=== PATIENT | female | born 1995 | race Caucasian/White ===

== ENCOUNTER 2025-02-08 13:17 | Inpatient (IN) | payer OTHER, SELFPAY ==
--- OUTSIDE RECORDS SUMMARY | 2025-02-06 19:56 | XMS_ITS | Encounter Summary ---
Author Organization [facility] Address [address] [place] [address] Care Team Providers Care Device Repair Technician Name Role Phone Unavailable Primary Care Provider Unavailabl e Reason for Visit * Reason Comments Lower extremity injury/pain Jumped appro ximately 15-20 feet off bridge, landed on a rock. No LOC, denies other pain/injury. RLE fx splinted by EMS. PMS intact 200 mcg Fentanyl and 4mg Zofran given by EMS. +ETOH approximately 4-5 drinks. * Auth/Cert (Routine) Specialty Diagnoses / Procedures Referred By Nafisa t Referred To Contact Emergency Medicine [facility] Emergency Department [address] [place] [phone] Phone: tel: fax: Referral ID Status Reason Start Date Expiration Date Visits Re quested Visits Authorized [id number] 1 1 Encounter Details Date Type Department Care Team (Late st Contact Info) Description 02/06/2025 7:56 PM CDT - 02/06/2025 11:03 PM CDT Emergency [facility] Emergency Department [address] [place] [phone] Jacob Erickson MD [address] [place] [phone] Knee laceration, right, initial encounter (Primary Dx); Fall, initial encounter Discharge Disposition: Home or Self Care Social History Tobacco Use Types Packs/Day Years Used Date Smoking Tobacco: Never Smokeless Tobacco: Never Tobacco Cessation:Counseling Given: Not Answered Alcohol Use Standard Drinks/Week Comments Yes 0 (1 standard drink = 0.6 oz pur e alcohol) SOCIAL DRINKER Feeling Safe Answer Date Recorded Are you in a relationship wi th someone who hurts you emotionally and/or physically? No 02/06/2025 Comments No Sex and Gender Information Value Date Recorded Sex Assigned at Not on file Legal Sex Female 9:51 PM CDT Gender Identity Not on file Sexual Orientation Not on file documented as of this encounter Last Filed Vital Signs Vital Sign Reading Time Taken Comments Blood Pressure 103/71 02/06/2025 10:00 PM CDT Pulse 103 02/06/2025 10:00 PM CDT Temperature 36.6 C (97.9 F) 02/06/2025 8:05 PM CDT Respiratory Rate 14 02/06/2025 10:00 PM CDT Oxygen Saturation 98% 02/06/2025 10:00 PM CDT Inhaled Oxygen Concentration - - Weight 81.6 kg (180 lb) 02/06/2025 8:05 PM CDT Height 170.2 cm (5' 7) 02/06/2025 8:05 PM CDT Body Mass Index 28.19 02/06/2025 8:05 PM CDT documented in this encounter Discharge Instructions * Discharge Instructions* Jacob Erickson MD - 02/06/2025 10:04 PM CDT Follow-up with your PCP in 10 to 14 days for repeat wound check and suture removal Return to the emergency department immediately if symptoms worsen, persist, or you have any other concerns. I strive to take your health care seriously and provide you with EXCELLENT service as my patient, making it my #1 priority. You may receive a survey after your visit today. If you cannot rate your experience as EXCELLENT, 10 OUT OF 10, OR HIGHLY RECOMMENDED, then please let us know how we can do a better job in caring foryou and meeting whatever needs you may have. * Attachments The following attachments cannot be sent through Care Everywhere. * Fall Prevention (Citizen [place]) * Lacerations: Stitches ([place]) documented in this encounter Medications at Time of Discharge albuterol sulfate HFA 90 mcg/actuation aerosol inhaler Take 2 Puffs by inhalation every 6 hours as needed for Shortness of Breath. cephALEXin (KEFLEX) 500 mg capsule Take 1 Capsule (500 mg) by mouth 4 times daily for 7 days. 28 Capsule 02/06/2025 5 HYDROcodone-acet aminophen (NORCO) 5-325 mg tabletIndication s:Knee laceration, right, initial encounter,Fall, initial encounter Take 1 Tablet by mouth every 6 hours as needed for Pain. Max Daily Amount: 4 Tablets 15 Tablet 02/06/2025 documented as of this encounter Progress Notes * Brenna Day, RT - 02/06/2025 9:04 PM CDT IMAGING SERVICES MEDICATION and FLUSH PROTOCOL [facility] ORDERS ARE ENTERED ???PER PROTOCOL?? Communication Orders: For ordered imaging procedures requiring intravenous access: Initiate a peripheral IV, if not already in place, and discontinue IV prior to discharge (if outpatient). Enter order if needed: Insert Peripheral IV Bariatric Oral Contrast: Post-surgical bariatric patients will have markedly reduced ability to drink normal quantities of liquid. Four ounces will be the maximum amount or less if the patient cannot comfortably tolerate. Cancel oral contrast if patient is nauseated or vomiting. Water based contrast only. Medication Orders: Local Anesthetic for use to initiate IV ADULT Lidocaine 4% (L.M.X.4) applied topically ONE TIME prior to IV catheter insertion PRN (L.M.X.4 % should be applied 15 minutes prior to procedure) PEDIATRIC Lidocaine 4% (L.M.X.4) applied topically ONE TIME prior to IV catheter insertion PRN (apply 30 minutes prior to procedure) Sucrose 24% (Squirts) given PO prior to IV catheter insertion (administer 1 - 2 minutes prior to procedure) OR Sucrose 24% (Tootsweet; Sweet-Ease) oral solution 0.2 mL oral (apply to tongue on pacifier or clean, gloved finger), ONE TIME 2 minutes prior to painful procedure. May repeat dose x1 PRN to complete procedure. Sodium chloride 0.9% (normal saline) flush 10 mL PRN for saline lock or medication administration. For respiratory distress, initiate oxygen and/or increase O2 to maintain saturation greater than 90% For all invasive procedures: obtain Lidocaine 1% for intra-procedure administration. If Lidocaine 1% unavailable, may substitute Lidocaine 2%. PROCEDURE SPECIFIC CT MEDICATIONS *Any exceptions to these contrast protocols must be approved by a Radiologist and documented in theEHR Progress Notes. When multiple medications are listed with the comment ???OR?? them, select first option until challenges from product availability make this option unavailable Cystogram (CT Pelvis): Iopamidol (Isovue 300) 61%, 50mL, diluted with 250mL of sterile NS. Inject Isovue into 250mL bag ofNS. Clamp ge catheter prior to instilling solution via catheter. Instill up to 300mL of Isovue and NS solution into bladder via catheter, one time. CT ORAL CONTRAST PROTOCOLS FOR ADULTS Use Iopamidol (Isovue 300) 300 mg/ml OR Iohexol (Omnipaque) 240 mg/Ml (SUBJECT TO AVAILABILITY) forCT scan unless patient has a documented allergy to contrast dye. If at any time the Midwife has a question about which option to administer, seek clarification from a Radiologist. If allergy present, use Barium Sulfate (EZ Paque) for procedure. Administer 960mL of the diluted Isovue 300 OR Omnipaque 240 (SUBJECT TO AVAILABILITY), orally, one time only. Iopamidol (Isovue 300) 300 mg/ml: 30ml added to 960mL of clear liquid of patient's choice. Preferred route is oral. May use nasoenteric tube if needed. OR Iohexol (Omnipaque) 240 mg/mL: 50ml added to 960mL of clear liquid of patient's choice. Preferred route is oral. May use nasoenteric tube if needed. (SUBJECT TO AVAILABILITY) Barium Sulfate (EZ Paque /Vanilla Silq) 96% oral suspension: Preferred route is oral. May use nasoenteric tube if needed. Administer 900mL of barium sulfate, orally, one time only. Bariatric Patient: Post-Surgery to 1 year - 50ml total volume. NO carbonated liquids Iopamidol (Isovue 300) 300 mg/ml: mixed with water. Draw 50ml of mixed solution for patient. Preferred route is orally. May use nasoenteric tube if needed. OR Iohexol (Omnipaque) 240 mg/ml: mixed with water. Draw 50ml of mixed solution for patient. Preferredroute is orally. May use nasoenteric tube if needed. (SUBJECT TO AVAILABILITY) After 1 year - no more than 236ml (8oz) total volume. NO carbonated liquids Iopamidol (Isovue 300) 300 mg/ml: mixed with water OR Iohexol (Omnipaque) 240 mg/Ml: mixed with water (SUBJECT TO AVAILABILITY) CT ORAL CONTRAST PROTOCOLS FOR PEDIATRICS Pediatrics = up to age 18 Pediatric Radiologist will approve of one of the following products selected for procedure. Barium Sulfate (EZ Paque) 96% oral suspension: preferred route is oral. May use nasoenteric tube ifneeded. to 3 months Administer up to 90mL of Barium sulfate, orally, one time only 4 months to 1 year old Administer up to 240mL of Barium sulfate, Orally, One Time Only 1 year old to 5 years old Administer up to 360mL of Barium sulfate, Orally, One Time Only 5 years old to 10 years old Administer up to 480mL of Barium sulfate, Orally, One Time Only Over 10 years old Administer up to 600mL of Barium sulfate, Orally, One Time Only Iopamidol (Isovue 300) 300 mg/ml oral soultion Dilute 15mL of Iopamidol with 480mL of clear liquid of patient's choice. Administer the diluted solution per age as follows: Preferred route is orally. May use nasoenteric tube if needed. Send any remaining diluted Iopamidol solution with the patient's nurse to CT Iopamidol (Isovue) 300 mg/ml oral solution age appropriate guidelines [place] Administer 45mL of diluted Iopamidol oral solution, orally every 30 minutes x 2 doses. 1 month to 1 year old Administer 120mL of diluted Iopamidol oral solution, orally every 30 min x 2 doses. 1 year old to 5 years old Administer 180mL of diluted Iopamidol oral solution, orally every 30 min x 2 doses. 5 years old to 10 years old Administer 240mL of diluted Iopamidol oral solution, orally every 30 min x 2 doses. Over 10 years old Administer 245mL of diluted Iopamidol oral solution, orally every 30 min x 2 doses. OR Iohexol (Omnipaque) 240 mg/mL oral solution (SUBJECT TO AVAILABILITY) Dilute 25mL of Iohexol with 480mL of clear liquid of patient's choice. Administer the diluted solution per age as follows: Preferred route is orally. May use nasoenteric tube if needed. Send any remaining diluted Iohexol solution with the patient's nurse to CT Iohexol (Omnipaque) 240 mg/ml oral solution age appropriate guidelines (SUBJECT TO AVAILABILITY) Administer 45mL of diluted Iohexol oral solution, orally every 30 minutes x 2 doses. 1 month to 1 year old Administer 120mL of diluted Iohexol oral solution, orally every 30 min x 2 doses. 1 year old to 5 years old Administer 180mL of diluted Iohexol oral solution, orally every 30 min x 2 doses. 5 years old to 10 years old Administer 240mL of diluted Iohexol oral solution, orally every 30 min x 2 doses. Over 10 years old Administer 250mL of diluted Iohexol oral solution, orally every 30 min x [address] RECTAL CONTRAST PROTOCOLS ADULTS: Iopamidol (Isovue) 300 mg/mL: Dilute 30mL of Isovue with 900mL of warm water in an enema bag. Administer the diluted solution rectally via gravity per patient's tolerance, up to 950mLs, one time only. OR Iohexol (Omnipaque) 240 mg/mL: Dilute 50mL of Omnipaque with 900mL of warm water in an enema bag. Administer the diluted solution rectally via gravity per patient's tolerance, up to 950mLs, one time only. (SUBJECT TO AVAILABILITY) CT IV CONTRAST PROTOCOLS for ADULT ADULTS: (If patient is less than 55kg and confirm dose with radiologist) Iopadmidol (Isovue-300): Administer 2.2mL/kg of Iopamidol 61%, intravenously, one time only. See table below for maximum dose, unless otherwise authorized by radiologist. If exam has been completed before the entire dose has been administered, stop the injection. Multiple doses of iodine contrast within a 24-hour period are a risk factor for IRA and should be avoided if possible. Emergent or other unusual circumstances where multiple doses of contrast are required in a short interval time should prompt consideration by the referring professional and radiologist to discuss the risks and benefits of contrast media administration. If exam not included in table below, contact radiologist for orders. Procedure Maximum Dose CT Head with Contrast Up to [address] Chest with Contrast Up to [address] Maxillofacial with Contrast Up to [address] Soft Tissue Neck with Contrast CT Chest Abdomen Pelvis with Contrast CT Chest Abdomen with Contrast CT Abdomen Pelvis with Contrast CT Pelvis with Contrast CT Angiogram Examinations (all) CT Soft Tissue Neck and Chest Abdomen Pelvis with Contrast Up to [address] Soft Tissue Neck and Chest with Contrast CT Urogram with Contrast CT IV CONTRAST PROTOCOLS for PEDIATRICS PEDIATRICS: Use weight-based dosing if patient is less than 55kg and confirm dose with radiologist. [place] to 15 years old Administer 2.2mL/kg (to MAX of 80 mL) of Iopamidol (Isovue-300) 61%, intravenously, one time only 15 years old and older Administer 2.2mL/kg (to MAX of 150mL) of Iopamidol (Isovue-300) 61%, intravenously, one time only PROCEDURE SPECIFIC MRI MEDICATIONS: MRI ENTEROGRAPHY: GLUGACON ADMINISTRATION ADULTS: (patient 18 years or older) Patient will receive 2 doses of Glucagon one dose 0.5mg IM administered by RN prior to the MRI exambeginning 2nd dose 0.5mg IV prior to the IV contrast being administered. (If the patient is diabetic call the radiologist to verify administration of Glucagon) PEDIATRICS: If the patient is diabetic call the radiologist to verify administration of Glucagon Pediatric patient weighing 24.9 kg or less should have one dose of Glucagon 0.5mg IM administered by RN prior to MRI exam beginning. Pediatric patient weighing 25 kg or greater should have one dose of Glucagon 1 mg IM administered by RN prior to the MRI exam beginning. MRI UROGRAM: LASIX ADMINISTRATION ADULTS: Call radiologist with any questions regarding administration of Lasix Lasix 0.1mg per kg with a minimum dose of Lasix 5mg IV being given up to a max dose of Lasix 10mg IV being given. The Lasix should be administered by RN prior to the IV contrast being administered. (Hold Lasix if: obstruction, anuria and hypersensitivity to furosemide, and electrolyte imbalance or hypotension should be corrected by RN before administering) MRI IV CONTRAST PROTOCOLS ADULTS: Multihance and Prohance can be used for most MRI scans Prohance should be used primarily. Multihance is useful in specific circumstances as directed by the radiologist or per the appropriate sections established protocols. Group I gadolinium contrast agents shall not be administered. Generally, multiple doses of gadolinium contrast should not be administered within a 24-hour period. In emergent or other unusual circumstances where this is necessary, only Group II agents should beadministered. For Liver Studies: Contact radiologist to determine use of one of the following: Gadobenate Dimeglumine (Multihance) (0.1mmol/0.2mL), Administer 0.1mmol/kg = 0.2mL/kg up to MAX of 20 mL, intravenously, one time only Gadoteridol (Prohance) (0.1mmol/0.2mL), Administer 0.1mmol/kg = 0.2mL/kg up to MAX of 20mL, intravenously, one time only Gadoxetate (Eovist) (2.5 mmol/10mL), Administer 0.025mmol/kg = 0.1mL/kg up to MAX of 10mL, intravenously, one time only PEDIATRICS: Radiologist to determine need for contrast Term neonates up to 2 years: Gadobuterol (Gadavist) (1mmol/mL injection), Administer 0.1mmol/kg = 0.1mL/kg up to MAX of 14mmol=14mL, intravenously, one time only OR Gadobenate Dimeglumine (Multihance) (0.1mmol/mL), Administer 0.1mmol/kg = 0.1mL/kg up to MAX of 14mmol = 14mL, intravenously, one time only 2 years and older Gadobenate Dimeglumine (Multihance) (0.1mmol/0.2mL), Administer 0.1mmol/kg = 0.2mL/kg up to MAX of 20mL, intravenously, one time only OR Gadoteridol (Prohance) (0.1mmol/0.2mL), Administer 0.1mmol/kg = 0.2mL/kg up to MAX of 20mL, intravenously, one time only TABLE 1. ACR Manual Classification of Gadolinium-Based Agents Relative to Nephrogenic Systemic Fibrosis Group I: Agents associated with the greatest number of NSF cases: Gadodiamide (Omniscan?? - [employer]) Gadopentetate dimeglumine (Magnevist?? - [employer]) Gadoversetamide (OptiMARK?? - [employer]) Group II: Agents associated with few, if any, unconfounded cases of NSF: Gadobenate dimeglumine (MultiHance?? - [employer] Gadobutrol (Gadavist?? - [employer]; Gadovist in many countries) Gadoteric acid (Dotarem?? - [place], Clariscan - [employer]) Gadoteridol (ProHance?? - [employer] Group III: Agents for which data remains limited regarding NSF risk, but for which few, if any unconfounded cases of NSF have been reported: Gadoxetate disodium (Eovist - [employer]; Primovist in many countries) documented in this encounter ED Notes * Gracia Anton RN - 02/06/2025 10:33 PM CDT Discharge instructions given verbally and written. Pt verbalized understanding of plan of care. Questions answered. No issues or concerns voiced. IV removed. RX sent to pharmacy of choice. Off the floor via wheelchair. Discharged home with aunt as transportation. * Gracia Anton RN - 02/06/2025 10:15 PM CDT Dressing applied to right knee w/ non-adherent dressing and secured w/ coban, akosua wrap applied to keep pt from bending knee too much to reopen wound. * Gracia Anton RN - 02/06/2025 9:40 PM CDT Pt called out requesting another bandage for her knee, other bandage fell off. As I was in room to place another dressing, Dr. Erickosn entered to suture knee. * Gracia Anton RN - 02/06/2025 9:05 PM CDT Pt gone to CT at this time. * Gracia Anton RN - 02/06/2025 8:30 PM CDT Labs obtained and sent. Pt denies any needs at this time. * Gracia Anton RN - 02/06/2025 8:15 PM CDT Chief Complaint Patient presents with Lower extremity injury/pain Jumped approximately 15-20 feet off bridge, landed on a rock. No LOC, denies other pain/injury. RLEfx splinted by EMS. PMS intact 200 mcg Fentanyl and 4mg Zofran given by EMS. +ETOH approximately 4-5 drinks. Patient arrived to the Emergency Department by [facility] from area of accident accompaniedby self. Patient transferred to room via stretcher and to bed via total assistance. Patient complaining of right knee pain after jumping off bridge into water, followed two other people who jumped w/o difficulty, but pt states she felt she broke her right knee right away and thinks she hit a rock but isn't completely sure. Patient is oriented to person, place, time, and general circumstances. Respirations even and unlabored. Skin pink, warm and dry. Pulses and sensation positive to RLE. Pt able to wiggle her toes. Patient resting in bed. No acute distress. Placed on central monitoring. Call light within reach. * Lupe Cabrera - 02/06/2025 8:06 PM CDT TRAUMA LEVEL 2 PAGED OUT AT 2006 * Jacob Erickson MD - 02/06/2025 7:56 PM CDTAssociated Order(s): Laceration Repair HISTORY OF PRESENT ILLNESS History of Present Illness PAST MEDICAL HISTORY REVIEWED MEDICAL: Patient has a past medical history of Asthma. SURGICAL: Patient has a past surgical history that includes wrist surgery (Left) and tonsillectomy. ALLERGIES Ciprofloxacin PHYSICAL EXAM INITIAL VS BP: 111/77 (02/06/252004), Heart Rate: (!) 106 bpm (02/06/252004), Resp: 16 (02/06/252004), Pulse: (!) 101 (02/06/252004), Temp: 97.9 ??F (36.6 ??C) (02/06/252004), Temp src: Oral (02/06/252004), SpO2: 100 % (02/06/252004), Height: 5' 7 (170.2 cm) (02/06/252004), Weight: 81.6 kg (180 lb) (02/06/252004), BMI (Calculated): (!) 28.17 (02/06/252004) Patient's last menstrual period was 01/23/2025 (approximate). Blood pressure 103/71, pulse (!) 103, temperature 97.9 ??F (36.6 ??C), temperature source Oral, resp. rate 14, height 5' 7 (1.702 m), weight 81.6 kg (180 lb), last menstrual period 01/23/2025, SpO2 98%. Physical Exam Vitals and nursing note reviewed. Constitutional: General: She is not in acute distress. HENT: Head: Normocephalic and atraumatic. Eyes: General: Right eye: No discharge. Left eye: No discharge. Conjunctiva/sclera: Conjunctivae normal. Pupils: Pupils are equal, round, and reactive to light. Cardiovascular: Rate and Rhythm: Normal rate. Heart sounds: Normal heart sounds. Pulmonary: Effort: Pulmonary effort is normal. No respiratory distress. Breath sounds: Normal breath sounds. Abdominal: Palpations: Abdomen is soft. Tenderness: There is no abdominal tenderness. There is no guarding. Musculoskeletal: General: No deformity. Cervical back: Neck supple. Skin: Capillary Refill: Capillary refill takes less than 2 seconds. Findings: No rash. Neurological: Mental Status: She is alert. Physical Exam DIAGNOSTICS LAB: CBC WITH DIFFERENTIAL - Abnormal Result Value WBC 7.7 RBC 4.09 HEMOGLOBIN 12.8 HEMATOCRIT 39.5 MCV 96.6 MCH 31.3 MCHC 32.4 RDW 13.0 RDW-STDEV 46.9 PLATELETS 271 MPV 9.2 (*) NEUTROPHILS 66 LYMPHOCYTES 26 MONOCYTES 5 EOSINOPHILS 2 BASOPHILS 1 IMMATURE GRANULOCYTES 0 NEUTROPHIL ABSOLUTE 5.09 LYMPHOCYTE ABSOLUTE 1.96 MONOCYTE ABSOLUTE 0.41 EOSINOPHIL ABSOLUTE 0.13 BASOPHILS ABSOLUTE 0.08 IMMATURE GRANULOCYTES ABSOLUTE 0.03 BASIC METABOLIC PANEL - Abnormal SODIUM 144 POTASSIUM 3.5 CHLORIDE 110 (*) CO2 24 CALCIUM 8.3 (*) BUN 10 CREATININE 0.77 GLUCOSE 90 GFR >60 ANION GAP 10 ETHANOL LEVEL - Abnormal ETHANOL 111.00 (*) ETHANOL % 0.11 PROTIME-INR - Normal PROTIME 13.4 INR 1.0 PTT - Normal PTT 27.2 HCG QUALITATIVE, BLOOD - Normal HCG QUAL, BLOOD Negative URINALYSIS WITH REFLEX MICROSCOPIC HCG QUALITATIVE, URINE DRUG SCREEN, URINE RADIOLOGY: CT 2D RECONSTRUCTION Radiologist Impression IMPRESSION: 1. No acute fracture or malalignment. DICTATION LOCATION: Location 4 CTA CHEST + ABD/PEL W CONTRAST Radiologist Impression IMPRESSION: 1. No pulmonary embolus CT HEAD CERVICAL SPINE WO CONTRAST Radiologist Impression IMPRESSION: 1. No CT evidence of acute intracranial abnormality. 2. No acute cervical spine fracture or traumatic malalignment. DICTATION LOCATION: Location 4 XR KNEE 1 OR 2 VW RIGHT Radiologist Impression IMPRESSION: Laceration. Small joint effusion. DICTATION LOCATION: Location 1 - [facility] XR CHEST PA OR AP 1 VW Radiologist Impression IMPRESSION: Clear lungs. DICTATION LOCATION: Location - [facility] EKG: PROCEDURES Laceration Repair Date/Time: 02/06/2025 10:49 PM Performed by: Jacob Erickson MD Authorized by: Jacob Erickson MD Consent: Consent obtained: Verbal Consent given by: Patient Risks, benefits, and alternatives were discussed: yes Risks discussed: Nerve damage, need for additional repair, infection, pain, vascular damage, tendondamage and retained foreign body [place] protocol: Patient identity confirmed: Arm band and verbally with patient Anesthesia: Anesthesia method: Local infiltration Local anesthetic: Lidocaine 1% WITH epi Laceration details: Location: Leg Leg location: R knee Length (cm): 4 Exploration: Imaging outcome: foreign body not noted Wound exploration: entire depth of wound visualized Wound extent: no foreign bodies/material noted, no muscle damage noted, no nerve damage noted, no tendon damage noted, no underlying fracture noted and no vascular damage noted Contaminated: no Treatment: Area cleansed with: Saline Amount of cleaning: Standard Irrigation solution: Sterile saline Irrigation method: Syringe Layers/structures repaired: Deep dermal/superficial fascia Deep dermal/superficial fascia: Suture size: 4-0 Suture material: Vicryl Suture technique: Simple interrupted Number of sutures: 3 Skin repair: Repair method: Sutures Suture size: 4-0 Suture material: Nylon Suture technique: Simple interrupted Number of sutures: 7 Post-procedure details: Dressing: Sterile dressing Procedure completion: Tolerated well, no immediate complications MEDICAL DECISION MAKING AND PLAN OF CARE Assessment & Plan Medical Decision Making Differential diagnosis includes but not limited to: High: Knee laceration, contusion Mod: Fracture Low: Intra-abdominal hemorrhage intracranial hemorrhage Plan: 29-year-old female presents today with concern for fall after jumping [place] a jose into a river and striking a rock. Trauma CT negative. Knee x-ray negative. Laceration repaired as noted in procedure note which patient tolerated well. Keflex prescribed. [place] prescribed as well. PCP follow-up in 10 to 14 days for suture removal. Reasons return discussed. Patient discharged Amount and/or Complexity of Data Reviewed Labs: ordered. Radiology: ordered. ECG/medicine tests: ordered. Risk Prescription drug management. Clinical Scoring & Consults Medications Administered During the ED Stay from 02/06/20256 to 02/06/2025 2247 Date/Time Order Dose Route Action 02/06/2025 210 CDT iopamidoL (ISOVUE-300) 61% injection (drawn from multi-use bulk pack) 100 mL 100 mL IV Contrast Given 02/06/20252103 CDT sodium chloride flush injection 10 mL 10 mL IV Given 02/06/2025 2145 CDT lidocaine-EPINEPHrine (XYLOCAINE-EPI) 1 %-1:100,000 injection 10 mL 10 mL Infiltration Admin by Another Clinician (Comment) 02/06/2025 2217 CDT HYDROcodone-acetaminophen (NORCO) 5-325 mg per tablet 1 Tablet 1 Tablet Oral Given . New Prescriptions for this Encounter CEPHALEXIN (KEFLEX) 500 MG CAPSULE Take 1 Capsule (500 mg) by mouth 4 times daily for 7 days. HYDROCODONE-ACETAMINOPHEN (NORCO) 5-325 MG TABLET Take 1 Tablet by mouth every 6 hours as needed for Pain. Max Daily Amount: 4 Tablets LAST VS BP: 103/71 (02/06/252199), Heart Rate: 93 bpm (02/06/252199), Resp: 14 (02/06/252199), Pulse: (!) 103 (02/06/252199), Temp: 97.9 ??F (36.6 ??C) (02/06/252004), Temp src: Oral (02/06/252004), SpO2: 98 % (02/06/252199) CLINICAL IMPRESSION Diagnoses Diagnosis Comment Added By Time Added Knee laceration, right, initial encounter [S81.011A] Jacob Erickson MD 02/06/2025 10:03 PM Fall, initial encounter [W19.XXXA] Jacob Erickson MD 02/06/2025 10:03 PM DISPOSITION, EDUCATION AND MEDICATION RECONCILIATION Medications reconciled. See after visit summary for patient education on discharged patients. ED Disposition ED Disposition Discharge Condition Stable User Jacob Erickson MD Date/Time Sat Feb 06, 2025 10:04 PM Comment -- documented in this encounter Miscellaneous Notes * ED Bed Hold Comment Note - Yudy Muñoz EMT-P - 02/06/2025 7:56 PM CDT Bed: 14 Expected date: 02/06/25 Expected time: 7:40 PM Means of arrival: Comments: 29 F suicidal. Jumped approximately [address]. Closed LE fx. 150 mcg Fentanyl and 4mg Zofran given by EMS. VSS. documented in this encounter Plan of Treatment Not on file documented as of this encounter Procedures Procedure Name Priority Date/Time Associated Diagnosis Comments LACERATION REPAIR Routine 02/06/2025 10: [address] 2D RECONSTRUCTION Stat 02/06/2025 9:29 PM CDT CTA CHEST + ABD/PEL W CONTRAST Stat 02/06/2025 9:[address] HEAD CERVICAL SPINE WO CONTRAST Stat 02/06/2025 9:11 PM CDT XR KNEE 1 OR 2 VW RIGHT Stat 02/07/20 8:32 PM CDT XR CHEST PA OR AP 1 VW Stat 8:32 PM CDT EKG 12-LEAD Stat 02/06/2025 8:31 PM CDT HCG QUALITATIVE, SERUM Stat 8:25 PM CDT CBC WITH DIFFERENTIAL Stat 02/06/2025 8:24 PM CDT PTT Stat 02/06/2025 8:24 PM CDT PROTIME-INR Stat 02/06/2025 8:24 PM CDT ETHANOL LEVEL Stat 02/06/2025 8:24 PM CDT BASIC METABOLIC PANEL Stat 02/06/2025 8:24 PM CDT documented in this encounter Results * Laceration Repair (02/06/2025 10:49 PM CDT) Narrative Jacob Erickson MD - 02/06/2025 10:49 PM CDT Jacob Erickson MD 02/06/2025 10:51 PM Laceration Repair Date/Time: 02/06/2025 10:49 PM Performed by: Jacob Erickson MD Authorized by: Jacob Erickson MD Consent: Consent obtained: Verbal Consent given by: Patient Risks, benefits, and alternatives were discussed: yes Risks discussed: Nerve damage, need for additional repair, infection, pain, vascular damage, tendon damage and retained foreign body [place] protocol: Patient identity confirmed: Arm band and verbally with patient Anesthesia: Anesthesia method: Local infiltration Local anesthetic: Lidocaine 1% WITH epi Laceration details: Location: Leg Leg location: R knee Length (cm): 4 Exploration: Imaging outcome: foreign body not noted Wound exploration: entire depth of wound visualized Wound extent: no foreign bodies/material noted, no muscle damage noted, no nerve damage noted, no tendon damage noted, no underlying fracture noted and no vascular damage noted Contaminated: no Treatment: Area cleansed with: Saline Amount of cleaning: Standard Irrigation solution: Sterile saline Irrigation method: Syringe Layers/structures repaired: Deep dermal/superficial fascia Deep dermal/superficial fascia: Suture size: 4-0 Suture material: Vicryl Suture technique: Simple interrupted Number of sutures: 3 Skin repair: Repair method: Sutures Suture size: 4-0 Suture material: Nylon Suture technique: Simple interrupted Number of sutures: 7 Post-procedure details: Dressing: Sterile dressing Procedure completion: Tolerated well, no immediate complications Jacob Erickson MD PROCEDURE/MINOR SURGICAL ORD ERABLES Final Result * CT 2D RECONSTRUCTION (02/06/2025 9:29 PM CDT) Anatomical Region Laterality Modality Computed Tomogra phy 02/06/2025 9:29 PM CDT Impressions 02/06/2025 9:35 PM CDT IMPRESSION: 1. No acute fracture or malalignment. DICTATION LOCATION: Location 4 Narrative 02/06/2025 9:[address] 2D RECONSTRUCTION DATE: 02/06/2025 9:29 PM CLINICAL INDICATION: Jumped 15 to 20 ft. off bridge landing on rock. COMPARISON: Chest 2 views 04/07/2012. TECHNIQUE: Multiplanar reconstructed CT of the thoracic and lumbar spine was performed generated from source data after intravenous contrast administration. The examination was performed with the adjustment of mA according to the patient size and/or the use of Iterative Reconstruction Technique. FINDINGS: T-spine: Normal alignment. No acute fracture or vertebral body collapse. No large disc herniation, spinal canal stenosis, or foraminal stenosis at any thoracic level. L-spine: Normal alignment. No acute fracture or vertebral body collapse. No large disc herniation, spinal canal stenosis, or foraminal stenosis at any lumbar level. The visualized upper sacrum appears intact. Other: Please refer to concurrent chest abdomen and pelvis CT report for evaluation of the intrathoracic and abdominopelvic structures. Procedure Note Bert Martin DO - 02/06/2025 CT 2D RECONSTRUCTION DATE: 02/06/2025 9:29 PM CLINICAL INDICATION: Jumped 15 to 20 ft. [place] bridge landing on rock. COMPARISON: Chest 2 views 04/07/2012. TECHNIQUE: Multiplanar reconstructed CT of the thoracic and lumbar spine was performed generated from source data after intravenous contrast administration. The examination was performed with the adjustment of mA according to the patient size and/or the use of Iterative Reconstruction Technique. FINDINGS: T-spine: Normal alignment. No acute fracture or vertebral body collapse. No large disc herniation, spinal canal stenosis, or foraminal stenosis at any thoracic level. L-spine: Normal alignment. No acute fracture or vertebral body collapse. No large disc herniation, spinal canal stenosis, or foraminal stenosis at any lumbar level. The visualized upper sacrum appears intact. Other: Please refer to concurrent chest abdomen and pelvis CT report for evaluation of the intrathoracic and abdominopelvic structures. IMPRESSION: 1. No acute fracture or malalignment. DICTATION LOCATION: Location 4 us Jacob Erickson MD CT ORDERABLES Final Result * CTA CHEST + ABD/PEL W CONTRAST (02/06/2025 9:24 PM CDT) Anatomical Region Laterality Modality Chest, Abdomen, Pelvis Computed Tomography 02/06/2025 9:29 PM CDT Impressions 02/06/2025 9:38 PM CDT IMPRESSION: 1. No pulmonary embolus Narrative 02/06/2025 9:38 PM CDT EXAM: CTA CHEST + ABD/PEL W CONTRAST DATE: 02/06/2025 HISTORY: Trauma COMPARISON: None. TECHNIQUE: PE protocol chest CT with CT of the abdomen and pelvis. CT angiogram maximum intensity projection 3-D reconstructions of the chest abdomen pelvis was performed. Radiation dose reduction technique was utilized. CONTRAST: IOPAMIDOL 61 % INTRAVENOUS SOLUTION (MULTI-DOSE BULK PACK) Given:100 mL FINDINGS: CHEST: No filling defects are present in the pulmonary arteries to suggest emboli. No suspicious pulmonary nodules or infiltrates are seen. No pneumothorax or pleural effusion is present. The heart, great vessels, and mediastinum are unremarkable. ABDOMEN: The liver, gallbladder, spleen, pancreas, kidneys and adrenal glands are normal. The bowel shows a normal caliber and configuration. No free intraperitoneal air or evidence of obstruction is seen. No significant mesenteric or retroperitoneal lymphadenopathy is noted. PELVIS: The pelvic viscera are normal. The urinary bladder is unremarkable. No free pelvic fluid is present. Procedure Note Flavio Tafoya MD - 02/06/2025 EXAM: CTA CHEST + ABD/PEL W CONTRAST DATE: 02/06/2025 HISTORY: Trauma COMPARISON: None. TECHNIQUE: PE protocol chest CT with CT of the abdomen and pelvis. CT angiogram maximum intensity projection 3-D reconstructions of the chest abdomen pelvis was performed. Radiation dose reduction technique was utilized. CONTRAST: IOPAMIDOL 61 % INTRAVENOUS SOLUTION (MULTI-DOSE BULK PACK) Given:100 mL FINDINGS: CHEST: No filling defects are present in the pulmonary arteries to suggest emboli. No suspicious pulmonary nodules or infiltrates are seen. No pneumothorax or pleural effusion is present. The heart, great vessels, and mediastinum are unremarkable. ABDOMEN: The liver, gallbladder, spleen, pancreas, kidneys and adrenal glands are normal. The bowel shows a normal caliber and configuration. No free intraperitoneal air or evidence of obstruction is seen. No significant mesenteric or retroperitoneal lymphadenopathy is noted. PELVIS: The pelvic viscera are normal. The urinary bladder is unremarkable. No free pelvic fluid is present. IMPRESSION: 1. No pulmonary embolus us Jacob Erickson MD CT ORDERABLES Final Result * CT HEAD CERVICAL SPINE WO CONTRAST (02/06/2025 9:11 PM CDT) Anatomical Region Laterality Modality Head Computed Tomogra phy 02/06/2025 9:13 PM CDT Impressions 02/06/2025 9:18 PM CDT IMPRESSION: 1. No CT evidence of acute intracranial abnormality. 2. No acute cervical spine fracture or traumatic malalignment. DICTATION LOCATION: Location 4 Narrative 02/06/2025 9:[address] HEAD AND CERVICAL SPINE WITHOUT CONTRAST DATE: 02/06/2025 9:11 PM CLINICAL INDICATION: Trauma. COMPARISON: No relevant studies available. TECHNIQUE: CT of the head and cervical spine was performed without the administration of intravenous contrast. Multiplanar reconstructions were generated and reviewed. The examination was performed with the adjustment of mA according to the patient size and/or the use of Iterative Reconstruction Technique. FINDINGS: HEAD: No CT evidence of acute infarction, intracranial hemorrhage or mass lesion. The ventricles are normal without evidence of hydrocephalus. There are no extra-axial fluid collections. The visualized orbits are grossly unremarkable. Minimal paranasal sinus mucosal inflammatory changes. The mastoid air cells are clear. The visualized calvarium appears intact. CERVICAL SPINE: No acute fracture or malalignment. Vertebral body and intervertebral disc heights are maintained. No high-grade osseous spinal canal or neural foraminal compromise. Multiple hypodense thyroid nodules, the largest of which measures up to 0.8 cm, for which no imaging follow-up is recommended. Paravertebral soft tissues are otherwise within normal limits. The visualized lung apices are clear. Procedure Note Bert Martin DO - 02/06/2025 CT HEAD AND CERVICAL SPINE WITHOUT CONTRAST DATE: 02/06/2025 9:11 PM CLINICAL INDICATION: Trauma. COMPARISON: No relevant studies available. TECHNIQUE: CT of the head and cervical spine was performed without the administration of intravenous contrast. Multiplanar reconstructions were generated and reviewed. The examination was performed with the adjustment of mA according to the patient size and/or the use of Iterative Reconstruction Technique. FINDINGS: HEAD: No CT evidence of acute infarction, intracranial hemorrhage or mass lesion. The ventricles are normal without evidence of hydrocephalus. There are no extra-axial fluid collections. The visualized orbits are grossly unremarkable. Minimal paranasal sinus mucosal inflammatory changes. The mastoid air cells are clear. The visualized calvarium appears intact. CERVICAL SPINE: No acute fracture or malalignment. Vertebral body and intervertebral disc heights are maintained. No high-grade osseous spinal canal or neural foraminal compromise. Multiple hypodense thyroid nodules, the largest of which measures up to 0.8 cm, for which no imaging follow-up is recommended. Paravertebral soft tissues are otherwise within normal limits. The visualized lung apices are clear. IMPRESSION: 1. No CT evidence of acute intracranial abnormality. 2. No acute cervical spine fracture or traumatic malalignment. DICTATION LOCATION: Location 4 us Jacob Erickson MD CT ORDERABLES Final Result * XR KNEE 1 OR 2 VW RIGHT (02/06/2025 8:32 PM CDT) Anatomical Region Laterality Modality Lower Extremity Computed Radiogr aphy 02/06/2025 8:33 PM CDT Impressions 02/06/2025 8:38 PM CDT IMPRESSION: Laceration. Small joint effusion. DICTATION LOCATION: [address] Narrative 02/06/2025 8:38 PM CDT EXAM: XR KNEE 1 OR 2 VW RIGHT HISTORY: Pain after jumping off bridge DATE: 02/06/2025 8:32 PM COMPARISON: None FINDINGS: There is a small joint effusion. No fracture or subluxation. No bone lesion. A laceration and soft tissue swelling are seen along the anterior knee. Procedure Note Nidhi Chapin MD - 02/06/2025 EXAM: XR KNEE 1 OR 2 VW RIGHT HISTORY: Pain after jumping off bridge DATE: 02/06/2025 8:32 PM COMPARISON: None FINDINGS: There is a small joint effusion. No fracture or subluxation. No bone lesion. A laceration and soft tissue swelling are seen along the anterior knee. IMPRESSION: Laceration. Small joint effusion. DICTATION LOCATION: [address] Jacob Erickson MD DIAGNOSTIC IMAGING ORDERABLE S Final Result * XR CHEST PA OR AP 1 VW (02/06/2025 8:32 PM CDT) Anatomical Region Laterality Modality Chest Computed Radiogr aphy 02/06/2025 8:32 PM CDT Impressions 02/06/2025 8:38 PM CDT IMPRESSION: Clear lungs. DICTATION LOCATION: [address] Narrative 02/06/2025 8:38 PM CDT PORTABLE AP VIEW OF THE CHEST DATE: 02/06/2025 8:32 PM HISTORY: Pain after jumping from a bridge. COMPARISON: 04/07/2012 FINDINGS: The mediastinal and cardiac silhouettes are normal. The lungs are clear. There is no pleural effusion or pneumothorax. Mild mid thoracic dextrocurvature. Procedure Note Nidhi Chapin MD - 02/06/2025 PORTABLE AP VIEW OF THE CHEST DATE: 02/06/2025 8:32 PM HISTORY: Pain after jumping from a bridge. COMPARISON: 04/07/2012 FINDINGS: The mediastinal and cardiac silhouettes are normal. The lungs are clear. There is no pleural effusion or pneumothorax. Mild mid thoracic dextrocurvature. IMPRESSION: Clear lungs. 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1995 Requested By: JACOB Matute Order Number: [id number] Reading MD: Susihl Taylor MD Measurements Intervals [place] Rate: 94 P: 72 MI: 170 QRS: 90 QRSD: 84 T: 47 QT: 354 QTc: 442 Interpretive Statements Normal sinus rhythm BASELINE ARTIFACT Rightward axis Borderline ECG Electronically Signed On 02-07-2025 16:47:41 CDT by Sushil Taylor MD Procedure Note Sushil Taylor MD - 02/07/2025 [address] [place] [address] Test Date: 2025-02-06 Pat Name: [facility] Department: 97 Room: CHECKOUT Gender: Female 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1995 Requested By: JACOB Matute Order Number: [id number] Reading MD: Sushil Taylor MD Measurements Intervals [place] Rate: 94 P: 72 MI: 170 QRS: 90 QRSD: 84 T: 47 QT: 354 QTc: 442 Interpretive Statements Normal sinus rhythm BASELINE ARTIFACT Rightward axis Borderline ECG Electronically Signed On 02-07-2025 16:47:41 CDT by Sushil Taylor MD Jacob Erickson MD ECG ORDERABLES Final Result INTERFACE SYSTEM Refer to clinic/hospital department * HCG QUALITATIVE, BLOOD (02/06/2025 8:25 PM CDT) HCG QUAL, BLOOD Negative Negative 02/06/2025 9:12 PM CDT [facility] Blood Venipuncture / Unknown 02/06/2025 8:25 PM CDT 02/06/2025 8:28 PM CDT Jacob Erickson MD CHEMISTRY ORDERABLES Final R esult Performing Organization Address [facility] Co de Phone Number [facility] CLIA# [id number] [address] [place] [address] * (ABNORMAL) ETHANOL LEVEL (02/06/2025 8:24 PM CDT) Pathologist [facility] ETHANOL 111.00(H) <10.10 mg/dL 02/06/2025 8:58 PM CDT [facility] ETHANOL % 0.11 %w/v 02/06/2025 8:58 PM CDT [facility] Blood Venipuncture / Unknown 02/06/2025 8:24 PM CDT 02/06/2025 8:28 PM CDT Jacob Erickson MD CHEMISTRY ORDERABLES Final R esult Performing Organization Address City/[facility]/ZIP Co de Phone Number [facility] CLIA# [id number] [address] [place] [address] * (ABNORMAL) BASIC METABOLIC PANEL (02/06/2025 8:24 PM CDT) Pathologist [facility] SODIUM 144 136 - 145 mmol/L 02/06/2025 8:58 PM CDT [facility] POTASSIUM 3.5 3.5 - 4.9 mmol/L 02/06/2025 8:58 PM CDT [facility] CHLORIDE 110(H) 98 - 107 mmol/L 02/06/2025 8:58 PM CDT [facility] CO2 24 22 - 29 mmol/L 02/06/2025 8:58 PM CDT [facility] CALCIUM 8.3(L) 8.6 - 10.2 mg/dL 02/06/2025 8:58 PM CDT [facility] BUN 10 6 - 20 mg/dL 02/06/2025 8:58 PM T [facility] CREATININE 0.77 0.51 - 0.95 mg/dL 02/06/2025 8:58 PM T [facility] GLUCOSE 90 74 - 99 mg/dL 02/06/2025 8:58 PM T [facility] GFR >60 >=60 mL/min/1.7 3 sq meter 02/06/2025 8:58 PM T [facility] Comment:eGFR calculated with 2020 CKD-EPI equation. Vegetarian diet, extremely high or low muscle mass, and may affect results. Cystatin C with Glomerular Filtration Rate is a suitable alternative for these patients. ANION GAP 10 8 - 16 mmol/L 02/06/2025 8:58 PM T [facility] Blood Venipuncture / Unknown 02/06/2025 8:24 PM CDT 02/06/2025 8:28 PM CDT us Jacob Erickson MD CHEMISTRY ORDERABLES Final R esult [facility] CLIA# [id number] [address] [place] [address] * PTT (02/06/2025 8:24 PM CDT) PTT 27.2 23.0 - 36.2 seconds 02/06/2025 8:45 PM CDT [facility] Blood Venipuncture / Unknown 02/06/2025 8:24 PM CDT 02/06/2025 8:28 PM CDT Jacob Erickson MD HEMATOLOGY ORDERABLES Final Result Performing Organization Address City/[facility]/ZIP Co de Phone Number [facility] CLIA# [id number] [address] [place] [address] * PROTIME-INR (02/06/2025 8:24 PM CDT) Pathologist [facility] PROTIME 13.4 12.3 - 14.9 Seconds 02/06/2025 8:45 PM CDT [facility] INR 1.0 0.9 - 1.1 02/06/2025 8:45 PM CDT [facility] Blood Venipuncture / Unknown 02/06/2025 8:24 PM CDT 02/06/2025 8:28 PM CDT Narrative [facility] - 02/06/2025 8:45 PM CDT INR Therapeutic Range: Adult: 2.0 - 3.0 for pulmonary embolism or prophylaxis against venous thrombosis or systemic embolization. 2.0 - 3.0 for patients with tissue heart valves. 2.5 - 3.5 for patients with mechanical heart valves or post [place]. Pediatric (12 years and under): 1.5 - 3.0 Although the target range in children is not well established, INR values of 1.5 - 3.0 are recommended for most patients. Higher values have been used in children with prosthetic cardiac valves and hereditary clotting disorders. [place] (<3 days) therapeutic ranges have not been established. Jacob Erickson MD HEMATOLOGY ORDERABLES Final Result Performing Organization Address City/[facility]/ZIP Co de Phone Number [facility] CLIA# [id number] [address] [place] [address] * (ABNORMAL) CBC WITH DIFFERENTIAL (02/06/2025 8:24 PM CDT) WBC 7.7 4.0 - 9.8 K/uL 02/06/2025 8:31 PM CDT [facility] [place] Comment:ANC = 5.09K/uL RBC 4.09 3.90 - 4.90 M/uL 02/06/2025 8:31 PM CDT [facility] [place] HEMOGLOBIN 12.8 11.8 - 14.8 g/dL 02/06/2025 8:31 PM CDT [facility] [place] HEMATOCRIT 39.5 35.5 - 44.0 % 02/06/2025 8:31 PM CDT [facility] [place] MCV 96.6 82.0 - 99.0 fL 02/06/2025 8:31 PM CDT [facility] [place] MCH 31.3 27.2 - 32.6 pg 02/06/2025 8:31 PM CDT [facility] [place] MCHC 32.4 31.5 - 35.5 g/dL 02/06/2025 8:31 PM CDT [facility] [place] RDW 13.0 11.5 - 14.5 % 02/06/2025 8:31 PM CDT [facility] [place] RDW-STDEV 46.9 37.1 - 48.7 fL 02/06/2025 8:31 PM CDT [facility] [place] PLATELETS 271 140 - 350 K/uL 02/06/2025 8:31 PM CDT [facility] [place] MPV 9.2(L) 9.3 - 12.4 fL 02/06/2025 8:31 PM CDT [facility] [place] NEUTROPHILS 66 % 02/06/2025 8:31 PM CDT [facility] [place] LYMPHOCYTES 26 % 02/06/2025 8:31 PM CDT [facility] [place] MONOCYTES 5 % 02/06/2025 8:31 PM CDT [facility] [place] EOSINOPHILS 2 % 02/06/2025 8:31 PM CDT [facility] [place] BASOPHILS 1 % 02/06/2025 8:31 PM CDT [facility] [place] IMMATURE GRANULOCYTES 0 % 02/06/2025 8:31 PM CDT [facility] [place] NEUTROPHIL ABSOLUTE 5.09 1.90 - 7.00 K/uL 02/06/2025 8:31 PM CDT [facility] [place] LYMPHOCYTE ABSOLUTE 1.96 0.70 - 4.50 K/uL 02/06/2025 8:31 PM CDT [facility] MONOCYTE ABSOLUTE 0.41 0.10 - 1.30 K/uL 02/06/2025 8:31 PM CDT [facility] EOSINOPHIL ABSOLUTE 0.13 0.00 - 0.70 K/uL 02/06/2025 8:31 PM CDT [facility] BASOPHILS ABSOLUTE 0.08 0.00 - 0.20 K/uL 02/06/2025 8:31 PM CDT [facility] IMMATURE GRANULOCYTES ABSOLUTE 0.03 0.00 - 0.03 K/uL 02/06/2025 8:31 PM CDT [facility] Blood Venipuncture / Unknown 02/06/2025 8:24 PM CDT 02/06/2025 8:28 PM CDT Jacob Erickson MD HEMATOLOGY ORDERABLES Final Result [facility]# [id number] [address] [place] [address] documented in this encounter Visit Diagnoses Diagnosis Knee laceration, right, initial encounter- Primary Fall, initial encounter documented in this encounter Administered Medications Inactive Administered Medications - up to 3 most recent administrations Medication Order MAR Action Action Date Dose Rate Site HYDROcodone-acetaminophe n (NORCO) 5-325 mg per tablet 1 Tablet 1 Tablet, Oral, ONE TIME ONLY, 1 dose, On 02/06/25 at 2215, Routine Given 02/06/2025 10:17 PM CDT 1 Tablet iopamidoL (ISOVUE-300) 61% injection (drawn from multi-use bulk pack) 100 mL 100 mL, IV, INTRA-PROCEDURE ONCE, 1 dose, Starting on 02/06/25 at 2103, Until 02/06/25 at 2104, Routine Contrast Given 02/06/2025 9:04 PM CDT 100 mL lidocaine-EPINEPHrine (XYLOCAINE-EPI) 1 %-1:100,000 injection 10 mL 10 mL, Infiltration, ONE TIME ONLY, 1 dose, On 02/06/25 at 2145, Routine Admin by Another Clinician (Comment) 02/06/2025 9:45 PM CDT 10 mL sodium chloride flush injection 10 mL 10 mL, IV, INTRA-PROCEDURE ONCE, 1 dose, Starting on 02/06/25 at 2103, Until 02/06/25 at 2103, Routine Given 02/06/2025 9:04 PM CDT 10 mL documented in this encounter Active and Recently Administered Medications Times are shown in CDT. Scheduled Medication Order 02/04/2025 02/05/2025 02/06/2025 HYDROcodone-acetaminophen (NORCO) 5-325 mg per tablet 1 Tablet (COMPLETED) 1 Tablet, Oral, ONE TIME ONLY, 1 dose, On 02/06/25 at 2215, Routine 221 (Given - Provid er: Gracia Anton RN) iopamidoL (ISOVUE-300) 61% injection (drawn from multi-use bulk pack) 100 mL (COMPLETED) 100 mL, IV, INTRA-PROCEDURE ONCE, 1 dose, Starting on 02/06/25 at 2103, Until 02/06/25 at 2103, Routine 2103 (Contrast Given - Provider: RT Camila) lidocaine-EPINEPHrine (XYLOCAINE-EPI) 1 %-1:100,000 injection 10 mL (COMPLETED) 10 mL, Infiltration, ONE TIME ONLY, 1 dose, On 02/06/25 at 2145, Routine 2144 (Admin by [facility] er Clinician (Comment) - Provider: Gracia Anton RN) sodium chloride flush injection 10 mL (COMPLETED) 10 mL, IV, INTRA-PROCEDURE ONCE, 1 dose, Starting on 02/06/25 at 2103, Until 02/06/25 at 2103, Routine 2103 (Given - Provid er: RT Camila) documented in this encounter
--- OUTSIDE RECORDS SUMMARY | 2025-02-06 19:56 | XMS_ITS | Encounter Summary ---
Author Organization [facility] Address [address] [place] [address] Care Team Providers Care Bobbin Sorter Name Role Phone Unavailable Primary Care Provider [...] Nafisa t Referred To Contact Emergency Medicine [facility] Emergency Department [address] [place] [phone] Phone: tel: fax: Referral ID Status Reason Start Date Expiration Date Visits Re quested Visits Authorized [id number] 1 1 Encounter Details Date Type Department Care Team (Late st Contact Info) Description 02/06/2025 7:56 PM CDT - 02/06/2025 11:03 PM CDT Emergency [facility] Emergency Department [address] [place] [phone] Jacob Erickson MD [address] [place] [phone] Knee laceration, right, initial encounter (Primary [...] sent through Care Everywhere. * Fall Prevention (Namibian) * Lacerations: Stitches (Namibian) documented in this encounter Medications at Time [...] CDT IMAGING SERVICES MEDICATION and FLUSH PROTOCOL [facility] ORDERS ARE ENTERED ???PER PROTOCOL?? Communication [...] contrast dye. If at any time the Fire Assistant has a question about which option to [...] 300 mg/ml oral solution age appropriate guidelines Peshtigo Administer 45mL of diluted Iopamidol oral solution, [...] than 55kg and confirm dose with radiologist. Peshtigo to 15 years old Administer 2.2mL/kg (to [...] number of NSF cases: Gadodiamide (Omniscan?? - [employer]) Gadopentetate dimeglumine (Magnevist?? - [employer]) Gadoversetamide (OptiMARK?? - Guerbet) Group II: Agents associated with few, if any, unconfounded cases of NSF: Gadobenate dimeglumine (MultiHance?? - [employer]) Gadobutrol (Gadavist?? - [employer]; Gadovist in many countries) Gadoteric acid (Dotarem?? - Guerbet, Clariscan - [employer]) Gadoteridol (ProHance?? - [employer]) Group III: Agents for which data remains limited regarding NSF risk, but for which few, if any unconfounded cases of NSF have been reported: Gadoxetate disodium (Eovist - Apprats; Primovist in many countries) documented in this [...] in room to place another dressing, Dr. Erickson entered to suture knee. * Gracia Anton [...] Patient arrived to the Emergency Department by [facility] from area of accident accompaniedby self. [...] joint effusion. DICTATION LOCATION: Location 1 - [facility] XR CHEST PA OR AP 1 VW Radiologist Impression IMPRESSION: Clear lungs. DICTATION LOCATION: Location - [facility] EKG: PROCEDURES Laceration Repair Date/Time: 02/06/2025 10:49 PM Performed by: Jacob Erickson MD Authorized by: Jacob Erickson MD Consent: Consent obtained: Verbal Consent given by: Patient Risks, benefits, and alternatives were discussed: yes Risks discussed: Nerve damage, need for additional repair, infection, pain, vascular damage, tendondamage and retained foreign body [place] protocol: Patient identity confirmed: Arm band and [...] note which patient tolerated well. Keflex prescribed. Normangee prescribed as well. PCP follow-up in 10 [...] damage, tendon damage and retained foreign body [place] protocol: Patient identity confirmed: Arm band and [...] IMPRESSION: Laceration. Small joint effusion. DICTATION LOCATION: [address] Narrative 02/06/2025 8:38 PM CDT EXAM: [...] IMPRESSION: Laceration. Small joint effusion. DICTATION LOCATION: [address] Jacob Erickson MD DIAGNOSTIC IMAGING ORDERABLE S Final Result * XR CHEST PA OR AP 1 VW (02/06/2025 8:32 PM CDT) Anatomical Region Laterality Modality Chest Computed Radiogr aphy 02/06/2025 8:32 PM CDT Impressions 02/06/2025 8:38 PM CDT IMPRESSION: Clear lungs. DICTATION LOCATION: [address] Narrative 02/06/2025 8:38 PM CDT PORTABLE [...] Clear lungs. 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1995 Requested By: JACOB Matute Order Number: [id number] Reading MD: Sushil Taylor MD Measurements Intervals [place] Rate: 94 P: 72 ME: 170 QRS: 90 QRSD: 84 T: 47 QT: 354 QTc: 442 Interpretive Statements Normal sinus rhythm BASELINE ARTIFACT Rightward axis Borderline ECG Electronically Signed On 02-07-2025 16:47:41 CDT by Sushil Taylor MD Procedure Note Sushil Taylor MD - 02/07/2025 [address] [place] [address] Test Date: 2025-02-06 Pat Name: [facility] Department: 97 Room: CHECKOUT Gender: Female 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1995 Requested By: JACOB Matute Order Number: [id number] Reading MD: Sushil Taylor MD Measurements Intervals [place] Rate: 94 P: 72 ME: 170 QRS: 90 QRSD: 84 T: 47 QT: 354 QTc: 442 Interpretive Statements Normal sinus rhythm BASELINE ARTIFACT Rightward axis Borderline ECG Electronically Signed On 02-07-2025 16:47:41 CDT by Sushil Taylor MD Jacob Erickson MD ECG ORDERABLES Final Result INTERFACE SYSTEM Refer to clinic/hospital department * HCG QUALITATIVE, BLOOD (02/06/2025 8:25 PM CDT) HCG QUAL, BLOOD Negative Negative 02/06/2025 9:12 PM CDT [facility] Transfer To [facility] Blood Venipuncture / Unknown 02/06/2025 8:25 PM CDT 02/06/2025 8:28 PM CDT Jacob Erickson MD CHEMISTRY ORDERABLES Final R esult Performing Organization Address [facility] Co de Phone Number [facility] Transfer To [facility] CLIA# [id number] [address] [place] [address] * (ABNORMAL) ETHANOL LEVEL (02/06/2025 8:24 PM CDT) Pathologist [facility] ETHANOL 111.00(H) <10.10 mg/dL 02/06/2025 8:58 PM CDT [facility] Transfer To [facility] ETHANOL % 0.11 %w/v 02/06/2025 8:58 PM CDT [facility] Transfer To [facility] Blood Venipuncture / Unknown 02/06/2025 8:24 PM CDT 02/06/2025 8:28 PM CDT Jacob Erickson MD CHEMISTRY ORDERABLES Final R esult Performing Organization Address City/[facility]/ZIP Co de Phone Number [facility] Transfer To [facility] CLIA# [id number] [address] [place] [address] * (ABNORMAL) BASIC METABOLIC PANEL (02/06/2025 8:24 PM CDT) Pathologist [facility] SODIUM 144 136 - 145 mmol/L 02/06/2025 8:58 PM CDT [facility] Transfer To [facility] POTASSIUM 3.5 3.5 - 4.9 mmol/L 02/06/2025 8:58 PM CDT [facility] CHLORIDE 110(H) 98 - 107 mmol/L 02/06/2025 8:58 PM CDT [facility] CO2 24 22 - 29 mmol/L 02/06/2025 8:58 PM CDT [facility] CALCIUM 8.3(L) 8.6 - 10.2 mg/dL 02/06/2025 8:58 PM CDT [facility] BUN 10 6 - 20 mg/dL 02/06/2025 8:58 PM T [facility] CREATININE 0.77 0.51 - 0.95 mg/dL 02/06/2025 8:58 PM T [facility] GLUCOSE 90 74 - 99 mg/dL 02/06/2025 8:58 PM T [facility] GFR >60 >=60 mL/min/1.7 3 sq meter 02/06/2025 8:58 PM T [facility] Comment:eGFR calculated with 2020 CKD-EPI equation. Vegetarian diet, extremely high or low muscle mass, and may affect results. Cystatin C with Glomerular Filtration Rate is a suitable alternative for these patients. ANION GAP 10 8 - 16 mmol/L 02/06/2025 8:58 PM T [facility] Blood Venipuncture / Unknown 02/06/2025 8:24 PM CDT 02/06/2025 8:28 PM CDT us Jacob Erickson MD CHEMISTRY ORDERABLES Final R esult [facility] CLIA# [id number] [address] [place] [address] * PTT (02/06/2025 8:24 PM CDT) PTT 27.2 23.0 - 36.2 seconds 02/06/2025 8:45 PM CDT [facility] Blood Venipuncture / Unknown 02/06/2025 8:24 PM CDT 02/06/2025 8:28 PM CDT Jacob Erickson MD HEMATOLOGY ORDERABLES Final Result Performing Organization Address City/[facility]/ZIP Co de Phone Number [facility] CLIA# [id number] [address] [place] [address] * PROTIME-INR (02/06/2025 8:24 PM CDT) Pathologist [facility] PROTIME 13.4 12.3 - 14.9 Seconds 02/06/2025 8:45 PM CDT [facility] Transfer To [facility] INR 1.0 0.9 - 1.1 02/06/2025 8:45 PM CDT [facility] Transfer To [facility] Blood Venipuncture / Unknown 02/06/2025 8:24 PM CDT 02/06/2025 8:28 PM CDT Narrative [facility] - 02/06/2025 8:45 PM CDT INR Therapeutic Range: Adult: 2.0 - 3.0 for pulmonary embolism or prophylaxis against venous thrombosis or systemic embolization. 2.0 - 3.0 for patients with tissue heart valves. 2.5 - 3.5 for patients with mechanical heart valves or post SC. Pediatric (12 years and under): 1.5 - 3.0 Although the target range in children is not well established, INR values of 1.5 - 3.0 are recommended for most patients. Higher values have been used in children with prosthetic cardiac valves and hereditary clotting disorders. Peshtigo (<3 days) therapeutic ranges have not been established. Jacob Erickson MD HEMATOLOGY ORDERABLES Final Result Performing Organization Address City/[facility]/ZIP Co de Phone Number [facility] Transfer To [facility] CLIA# [id number] [address] [place] [address] * (ABNORMAL) CBC WITH DIFFERENTIAL (02/06/2025 8:24 PM CDT) WBC 7.7 4.0 - 9.8 K/uL 02/06/2025 8:31 PM CDT [facility] [place] Comment:ANC = 5.09K/uL RBC 4.09 3.90 - 4.90 M/uL 02/06/2025 8:31 PM CDT [facility] [place] HEMOGLOBIN 12.8 11.8 - 14.8 g/dL 02/06/2025 8:31 PM CDT [facility] [place] HEMATOCRIT 39.5 35.5 - 44.0 % 02/06/2025 8:31 PM CDT [facility] [place] MCV 96.6 82.0 - 99.0 fL 02/06/2025 8:31 PM CDT [facility] [place] MCH 31.3 27.2 - 32.6 pg 02/06/2025 8:31 PM CDT [facility] [place] MCHC 32.4 31.5 - 35.5 g/dL 02/06/2025 8:31 PM CDT [facility] [place] RDW 13.0 11.5 - 14.5 % 02/06/2025 8:31 PM CDT [facility] [place] RDW-STDEV 46.9 37.1 - 48.7 fL 02/06/2025 8:31 PM CDT [facility] [place] PLATELETS 271 140 - 350 K/uL 02/06/2025 8:31 PM CDT [facility] [place] MPV 9.2(L) 9.3 - 12.4 fL 02/06/2025 8:31 PM CDT [facility] [place] NEUTROPHILS 66 % 02/06/2025 8:31 PM CDT [facility] [place] LYMPHOCYTES 26 % 02/06/2025 8:31 PM CDT [facility] [place] MONOCYTES 5 % 02/06/2025 8:31 PM CDT [facility] [place] EOSINOPHILS 2 % 02/06/2025 8:31 PM CDT [facility] [place] BASOPHILS 1 % 02/06/2025 8:31 PM CDT [facility] [place] IMMATURE GRANULOCYTES 0 % 02/06/2025 8:31 PM CDT [facility] [place] NEUTROPHIL ABSOLUTE 5.09 1.90 - 7.00 K/uL 02/06/2025 8:31 PM CDT [facility] [place] LYMPHOCYTE ABSOLUTE 1.96 0.70 - 4.50 K/uL 02/06/2025 8:31 PM CDT [facility] MONOCYTE ABSOLUTE 0.41 0.10 - 1.30 K/uL 02/06/2025 8:31 PM CDT [facility] EOSINOPHIL ABSOLUTE 0.13 0.00 - 0.70 K/uL 02/06/2025 8:31 PM CDT [facility] BASOPHILS ABSOLUTE 0.08 0.00 - 0.20 K/uL 02/06/2025 8:31 PM CDT [facility] IMMATURE GRANULOCYTES ABSOLUTE 0.03 0.00 - 0.03 K/uL 02/06/2025 8:31 PM CDT [facility] Blood Venipuncture / Unknown 02/06/2025 8:24 PM CDT 02/06/2025 8:28 PM CDT Jacob Erickson MD HEMATOLOGY ORDERABLES Final Result [facility]# [id number] [address] [place] [address] documented in this encounter Visit Diagnoses Diagnosis [...] 02/06/25 at 2145, Routine 2144 (Admin by [facility] er Clinician (Comment) - Provider: Gracia Anton RN) sodium chloride flush injection 10 mL (COMPLETED) 10 mL, IV, INTRA-PROCEDURE ONCE, 1 dose, Starting on 02/06/25 at 2103, Until 02/06/25 at 2103, Routine 2103 (Given - Provid er: RT Camila) documented in this encounter
[2025-02-08] VITALS (30 sets, daily range): BP systolic 92–122; BP diastolic 53–75; PULSE 82–107; RESP 8–23; TEMP 36.9–38.8; O2SAT 92–100; BMI 29.2
--- NOTE | ~2025-02-08 | MR_ITS ---
EXAMINATION: MR knee RT wo/w con DATE: 02/09/2025 13:38 INDICATION: Right knee prepatellar septic bursitis TECHNIQUE: Magnetic resonance imaging (MRI) of the right knee was performed without intravenous contrast. Sequences included coronal PD-weighted FSE, coronal PD-weighted FS FSE, sagittal T2-weighted FSE, sagittal PD-weighted FS FSE, axial PD weighted fat saturated FSE, axial T1-weighted FS FSE and post contrast axial, sagittal and coronal T1-weighted FS FSE. COMPARISON: None. FINDINGS: Medial compartment: Medial meniscus is normal. Articular cartilage is normal. Lateral compartment: Lateral meniscus is normal. Articular cartilage is normal. Patellofemoral compartment: Small nondisplaced partial-thickness chondral flap tear at the medial aspect of the lateral patellar facet which appears to involve both to 50% the cartilage thickness. Trochlear cartilage is normal. Ligaments and tendons: Anterior cruciate ligament is normal. There appears be a complete tear extending across the midportion of the posterior cruciate ligament. The medial collateral ligament and fibular collateral ligament complex are normal. The extensor mechanism is normal. The visualized medial and lateral hamstring tendons as well as the iliotibial band are normal. Fluid: Small knee joint effusion at the suprapatellar pouch with relatively uniform thin enhancing synovium. No loose osteochondral bodies identified. Prominent prepatellar soft tissue swelling with dense edema/small amount of nonloculated fluid tracking along the superficial fascia and along the enhancing septations the lobules of subcutaneous fat. No organized peripheral enhancing abscess or fluid-filled bursa. There are a few tiny foci of low signal intensity immediately underlying appears be a small likely sutured to skin anterior to the inferior patella. The small foci of low signal could represent either foreign debris, tiny gas bubbles as seen on prior CT or susceptibility artifact related to a middle penetrating trauma. Osseous/other: Bone alignment is normal. There is patellar marrow edema without loss of T1 fat signal or evident fracture line most likely related to bone contusion. No fracture or pathologic marrow replacing process. IMPRESSION: 1. Edema within the patella without discrete fracture line most likely related to post traumatic bone contusion. 2. There is a likely sutured skin laceration overlying the inferior patella with a few foci of gas, foreign debris metallic susceptibility artifact related to penetrating injury prominent surrounding soft tissue edema which could represent posttraumatic contusion or cellulitis. No organized fluid collection to suggest abscess or septic bursitis. 3. Complete tear of the posterior cruciate ligament. Remaining stabilizing ligaments, cartilage and menisci remain intact. 4. Nonspecific small likely reactive knee joint effusion without significant thickening of the enhancing synovium or inflammatory changes in the immediately surrounding fat to elevated concern for infection. Reviewed, dictated and finalized at location A. IMPRESSION: 1. Edema within the patella without discrete fracture line most likely related to post traumatic bone contusion. 2. There is a likely sutured skin laceration overlying the inferior patella wit h a few foci of gas, foreign debris metallic susceptibility artifact related to penetrating injury prominent surrounding soft tissue edema which could represe nt posttraumatic contusion or cellulitis. No organized fluid collection to sugg est abscess or septic bursitis. 3. Complete tear of the posterior cruciate ligament. Remaining stabilizing liga ments, cartilage and menisci remain intact. 4. Nonspecific small likely reactive knee joint effusion without significant th ickening of the enhancing synovium or inflammatory changes in the immediately s urrounding fat to elevated concern for infection.
--- NOTE | ~2025-02-08 | CT_ITS ---
EXAMINATION: CT knee RT w con DATE: 02/08/2025 18:13 INDICATION: Recent injury. Possible occult fracture. TECHNIQUE: Computed tomography (CT) of the right knee was performed without intravenous contrast. The dose-length product was 583.21 mGy-cm. COMPARISON: None FINDINGS: There is moderate soft tissue stranding anterior to the patella with associated soft tissue gas. There is a small joint effusion. No acute fracture is identified. No foreign bodies. IMPRESSION: 1. Moderate soft tissue stranding and soft tissue gas surrounding the anterior aspect of the right knee. These findings may be posttraumatic or infectious. Clinically correlate. 2: Small joint effusion. Reviewed, dictated and finalized at location O. IMPRESSION: 1. Moderate soft tissue stranding and soft tissue gas surrounding the anterior aspect of the right knee. These findings may be posttraumatic or infectious. Cl inically correlate. 2: Small joint effusion.
--- OUTSIDE RECORDS SUMMARY | 2025-02-08 13:21 | XMS_ITS | Clinical Summary ---
Author Organization [facility] Address [address] [place] [address] Care Team Providers Care Human Resources Associate Name Role Phone Az Taylor MD Primary Care Provider Source Comments [facility],non-owned Affiliates and Associated Physician Practices is amultiple site organization consisting of ambulatory clinics and hospital sitesin [place], [place], [place] and [place]. This disclosure is being madepursuant to the Care Everywhere program and may not contain all information available regarding this patient. Last updated 18.[facility] Allergies No known active allergies Medications * Be aware that medications may not be up to date on this document. Alwaysverify current medications with the patient. ALBUTEROL IN Active diphenhydramin e 12.5mg/ml, 30ml,; visc lidocaine 2%, 30ml,; maalox, 30ml, (MIRACLE MOUTHWASH) SUSP 1:1:1 solution of viscous lidocaine 2%, Maalox, diphenhydramine 12.5mg/5ml elixir 90 mL 11/07/19 17 Active Family History Medical History Relation Name Comments ADHD Neg Hx Allergies Neg Hx Aneurysm Neg Hx Asthma Neg Hx Autoimmune Disease Neg Hx Bipolar Disorder Neg Hx CVA<55(male) Neg Hx CVA<65(female) Neg Hx Cancer - Breast Neg Hx Cancer - Colon Neg Hx Cancer - Other Neg Hx Cancer - Ovarian Neg Hx Cancer - Pancreatic Neg Hx Cancer - Prostate Neg Hx Childhood Hearing Disorder Neg Hx Clotting Disorder Neg Hx Depression Neg Hx Diabetes Neg Hx Eczema Neg Hx Genetic Neg Hx Heart defect Neg Hx Hypercholesterolemia Neg Hx Hypertension Neg Hx TN<55(male) Neg Hx TN<65(female) Neg Hx Mental Health Neg Hx Migraine Neg Hx Osteoporosis Neg Hx Seizures Neg Hx Sudd. <30 Neg Hx Thyroid Disease Neg Hx Ulcerative Colitis Neg Hx Relation Name Status Comments Father Mother Alive Social History Tobacco Use Types Packs/Day Years Used Date Smoking Tobacco: Never Smokeless Tobacco: Never Comments No Sex and Gender Information Value Date Recorded Sex Assigned at Not on file Legal Sex Female 8:36 PM CDT Gender Identity Not on file Sexual Orientation Not on file Last Filed Vital Signs Vital Sign Reading Time Taken Comments Blood Pressure 110/70 01/15/2018 9:52 AM CDT Pulse 80 01/15/2018 9:52 AM CDT Temperature 36.8 C (98.2 F) 01/15/2018 9:52 AM CDT Respiratory Rate 16 01/15/2018 9:52 AM CDT Oxygen Saturation 99% 11/06/2016 4:20 PM CDT Inhaled Oxygen Concentration - - Weight 77.1 kg (170 lb) 01/15/2018 9:52 AM CDT Height 170.2 cm (5' 7) 01/15/2018 9:52 AM CDT Body Mass Index 26.63 01/15/2018 9:52 AM CDT Plan of Treatment Health Maintenance Due Date Last Done Comments HIV SCREENING 2009 HEPATITIS C SCREENING 04/09/2012 DTAP/TDAP/TD VACCINES (1 - Tdap) 2013 HEPATITIS B VACCINE (1 of 3 - 19+ 3-dose series) 2013 HPV VACCINE (1 - 3-dose SCDM series) 2021 DEPRESSION SCREENING 06/03/2024 COVID-19 VACCINE (1 - 2023-2 5 season) 2025 INFLUENZA VACCINE (#1) 2025 ZOSTER VACCINE (1 of 2) 2044 HIB VACCINE Aged Out No longer eligi ble based on patient's age to complete this topic MENINGOCOCCAL (Group B) VACC INE SHARED DECISION-MAKING Aged Out No longer eligibl e based on patient's age to complete this topic MENINGOCOCCAL GROUPS A/C/Y/W VACCINE Aged Out No longer eligible b ased on patient's age to complete this topic PNEUMOCOCCAL VACCINE Aged Out No long er eligible based on patient's age to complete this topic Insurance [facility] Care Teams Human Resources Associate Relationship Specialty Start Date End Date Az Taylor MD [address] [place] [address] PCP - General Internal Medicine 11/06/16
--- OUTSIDE RECORDS SUMMARY | 2025-02-08 13:21 | XMS_ITS | Clinical Summary ---
Author Organization [facility] Address [address] [place] [phone] Phone Care Team Providers Care Supervisor Road Administrator Name Role Phone Unavailable Primary Care Provider Unavailabl e Allergies Active Allergy Reactions Criticality Noted Date Comments Ciprofloxacin Anaphylaxis High 02/06/2025 Medications albuterol sulfate HFA 90 mcg/actuation aerosol inhaler Take 2 Puffs by inhalation every 6 hours as needed for Shortness of Breath. Active cephALEXin (KEFLEX) 500 mg capsule Take 1 Capsule (500 mg) by mouth 4 times daily for 7 days. 28 Capsule 5 02/14/20 25 Active HYDROcodone-akosua taminophen (NORCO) 5-325 mg tabletIndicatio ns:Knee laceration, right, initial encounter,Fall, initial encounter Take 1 Tablet by mouth every 6 hours as needed for Pain. Max Daily Amount: 4 Tablets 15 Tablet 5 Active Encounters Date Type Department Care Team Description 02/06/2025 7:56 PM CDT - 02/06/2025 11:03 PM CDT Emergency [facility] Emergency Department [address] [place] [address] Jacob Erickson MD Knee laceration, right, initial encounter (Primary Dx); Fall, initial encounter Discharge Disposition: Home or Self Care 02/06/2025 Travel from Last 3 Months Social History Tobacco Use Types Packs/Day Years [...] Mass Index 28.19 02/06/2025 8:05 PM CDT Plan of Treatment Health Maintenance Due Date Last Done Comments DTAP/TDAP/TD VACCINES (1 - Tdap) 2013 HEPATITIS B VACCINES (1 of 3 - 19+ 3-dose series) 04/03 HPV/Cotest (21-29) 2015 HPV VACCINES (1 - 3-dose SCDM series) 2021 CERVICAL CANCER SCREENING 2024 HPV/Cotest (30-65) 2024 PAP SMEAR 2024 INFLUENZA VACCINE (#1) 2025 Procedures Procedure Name Priority Date/Time Associated Diagnosis [...] HCG QUALITATIVE, SERUM Stat 8:25 PM CDT ETHANOL LEVEL Stat 02/06/2025 8:24 PM CDT BASIC METABOLIC PANEL Stat 02/06/2025 8:24 PM CDT PTT Stat 02/06/2025 8:24 PM CDT PROTIME-INR Stat 02/06/2025 8:24 PM CDT CBC WITH DIFFERENTIAL Stat 02/06/2025 8:24 PM CDT from Last 3 Months Results * Laceration Repair (02/06/2025 10:49 PM [...] damage, tendon damage and retained foreign body [place] protocol: Patient identity confirmed: Arm band and [...] visualized lung apices are clear. Procedure Note VeronicaBert daly, DO - 02/06/2025 CT HEAD AND CERVICAL [...] or traumatic malalignment. DICTATION LOCATION: Location [address] ORDERABLES Final Result * XR KNEE 1 OR 2 VW RIGHT (02/06/2025 8:32 PM CDT) Anatomical Region Laterality Modality Lower Extremity Computed Radiogr aphy 02/06/2025 8:33 PM CDT Impressions 02/06/2025 8:38 PM CDT IMPRESSION: Laceration. Small joint effusion. DICTATION LOCATION: [address] Narrative 02/06/2025 8:38 PM CDT EXAM: [...] IMPRESSION: Laceration. Small joint effusion. DICTATION LOCATION: [address] Jacob Erickson MD DIAGNOSTIC IMAGING ORDERABLE S Final Result * XR CHEST PA OR AP 1 VW (02/06/2025 8:32 PM CDT) Anatomical Region Laterality Modality Chest Computed Radiogr aphy 02/06/2025 8:32 PM CDT Impressions 02/06/2025 8:38 PM CDT IMPRESSION: Clear lungs. DICTATION LOCATION: [address] Narrative 02/06/2025 8:38 PM CDT PORTABLE [...] Clear lungs. DICTATION LOCATION: Location 1 - [facility] us Jacob Erickson MD DIAGNOSTIC IMAGING ORDERABLE S Final Result * EKG 12-LEAD (02/06/2025 8:31 PM CDT) 02/06/2025 8:31 PM CDT Narrative INTERFACE SYSTEM - 02/07/2025 4:47 PM CDT [place] [id number] Test Date: 2025-02-06 Pat Name: [facility] Department: Room: CHECKOUT Gender: Female Cutter Down: jerald : 1995 Requested By: JACOB Matute Order Number: [id number] Reading MD: Sushil Taylor MD Measurements Intervals [place] Rate: 94 P: 72 [place]: 170 QRS: 90 QRSD: 84 T: 47 QT: 354 QTc: 442 Interpretive Statements Normal sinus rhythm BASELINE ARTIFACT Rightward axis Borderline ECG Electronically Signed On 02-07-2025 16:47:41 CDT by Sushil Taylor MD Procedure Note Sushil Taylor MD - 02/07/[address] [id number] Test Date: 2025-02-06 Pat Name: [facility] Department: 97 Room: CHECKOUT Gender: Female Cutter Down: jerald : 1995 Requested By: JACOB Matute Order Number: [id number] Reading MD: Sushil Taylor MD Measurements Intervals [place] Rate: 94 P: 72 [place]: 170 QRS: 90 QRSD: 84 T: 47 QT: 354 QTc: 442 Interpretive Statements Normal sinus rhythm BASELINE ARTIFACT Rightward axis Borderline ECG Electronically Signed On 02-07-2025 16:47:41 CDT by Sushil Taylor MD us Jacob Erickson MD ECG ORDERABLES Final Result INTERFACE SYSTEM Refer to clinic/hospital department * HCG QUALITATIVE, BLOOD (02/06/2025 8:25 PM CDT) HCG QUAL, BLOOD Negative Negative 02/06/2025 9:12 PM CDT [facility] LABORATORY SERVICES [facility] Blood Venipuncture / Unknown 02/06/2025 8:25 PM CDT 02/06/2025 8:28 PM CDT Jacob Erickson MD CHEMISTRY ORDERABLES Final R esult [facility] [employer] SERVICES [facility] CLIA# [id number] [address] [place] [id number] * (ABNORMAL) CBC WITH DIFFERENTIAL (02/06/2025 8:24 PM CDT) Pathologist [facility] Emergency Department WBC 7.7 4.0 - 9.8 K/uL 02/06/2025 8:31 PM CDT [facility] LABORATORY SERVICES [facility] Comment:ANC = 5.09K/uL RBC 4.09 3.90 - 4.90 M/uL 02/06/2025 8:31 PM CDT [facility] LABORATORY SERVICES [facility] HEMOGLOBIN 12.8 11.8 - 14.8 g/dL 02/06/2025 8:31 PM CDT [facility] LABORATORY SERVICES [facility] HEMATOCRIT 39.5 35.5 - 44.0 % 02/06/2025 8:31 PM CDT [facility] LABORATORY [facility] MCV 96.6 82.0 - 99.0 fL 02/06/2025 8:31 PM CDT [facility] MCH 31.3 27.2 - 32.6 pg 02/06/2025 8:31 PM CDT [facility] MCHC 32.4 31.5 - 35.5 g/dL 02/06/2025 8:31 PM CDT [facility] RDW 13.0 11.5 - 14.5 % 02/06/2025 8:31 PM CDT [facility] RDW-STDEV 46.9 37.1 - 48.7 fL 02/06/2025 8:31 PM CDT [facility] PLATELETS 271 140 - 350 K/uL 02/06/2025 8:31 PM CDT [facility] LABORATORY SERVICES - [place] MPV 9.2(L) 9.3 - 12.4 fL 02/06/2025 8:31 PM CDT [facility] LAB[facility]ORY [facility] [place] NEUTROPHILS 66 % 02/06/2025 8:31 PM CDT [facility] [place] LYMPHOCYTES 26 % 02/06/2025 8:31 PM CDT [facility] [place] MONOCYTES 5 % 02/06/2025 8:31 PM CDT [facility] [place] EOSINOPHILS 2 % 02/06/2025 8:31 PM CDT [facility]ORY [facility] [place] BASOPHILS 1 % 02/06/2025 8:31 PM CDT [facility] LAB[facility]ORY [facility] [place] IMMATURE GRANULOCYTES 0 % 02/06/2025 8:31 PM CDT [facility] LAB[facility]ATORY [facility] [place] NEUTROPHIL ABSOLUTE 5.09 1.90 - 7.00 K/uL 02/06/2025 8:31 PM CDT [facility] LAB[facility]ATORY [facility] [place] LYMPHOCYTE ABSOLUTE 1.96 0.70 - 4.50 K/uL 02/06/2025 8:31 PM CDT [facility] LAB[facility]ATORY [facility] [place] MONOCYTE ABSOLUTE 0.41 0.10 - 1.30 K/uL 02/06/2025 8:31 PM CDT [facility] LAB[facility]ATORY [facility] [place] EOSINOPHIL ABSOLUTE 0.13 0.00 - 0.70 K/uL 02/06/2025 8:31 PM CDT [facility] LAB[facility]ORY [facility] [place] BASOPHILS ABSOLUTE 0.08 0.00 - 0.20 K/uL 02/06/2025 8:31 PM CDT [facility] LABORATORY [facility] [place] IMMATURE GRANULOCYTES ABSOLUTE 0.03 0.00 - 0.03 K/uL 02/06/2025 8:31 PM CDT [facility] [place] Blood Venipuncture / Unknown 02/06/2025 8:24 PM CDT 02/06/2025 8:28 PM CDT us Jacob Erickson MD HEMATOLOGY ORDERABLES Final Result [facility] [employer] [facility] CLIA# [id number] [address] [place] [address] * PTT (02/06/2025 8:24 PM CDT) PTT 27.2 23.0 - 36.2 seconds 02/06/2025 8:45 PM CDT [facility] Blood Venipuncture / Unknown 02/06/2025 8:24 PM CDT 02/06/2025 8:28 PM CDT Jacob Erickson MD HEMATOLOGY ORDERABLES Final Result Performing Organization Address [facility] de Phone Number [facility] [employer] [facility] CLIA# [id number] [address] [place] [address] * PROTIME-INR (02/06/2025 8:24 PM CDT) PROTIME 13.4 12.3 - 14.9 Seconds 02/06/2025 8:45 PM CDT [facility] INR 1.0 0.9 - 1.1 02/06/2025 8:45 PM CDT [facility] Blood Venipuncture / Unknown 02/06/2025 8:24 PM CDT 02/06/2025 8:28 PM CDT Narrative [facility] LABORATORY [facility] - 02/06/2025 8:45 PM CDT INR Therapeutic Range: Adult: 2.0 - 3.0 for pulmonary embolism or prophylaxis against venous thrombosis or systemic embolization. 2.0 - 3.0 for patients with tissue heart valves. 2.5 - 3.5 for patients with mechanical heart valves or post [place]. Pediatric (12 years and under): 1.5 - 3.0 Although the target range in children is not well established, INR values of 1.5 - 3.0 are recommended for most patients. Higher values have been used in children with prosthetic cardiac valves and hereditary clotting disorders. [place] (<3 days) therapeutic ranges have not been established. Jacob Erickson MD HEMATOLOGY ORDERABLES Final Result Performing Organization Address [facility] Co de Phone Number [facility] [employer] [facility] CLIA# [id number] [address] [place] [address] * (ABNORMAL) ETHANOL LEVEL (02/06/2025 8:24 PM CDT) ETHANOL 111.00(H) <10.10 mg/dL 02/06/2025 8:58 PM CDT [facility] LABORATORY [facility] ETHANOL % 0.11 %w/v 02/06/2025 8:58 PM CDT [facility] LABORATORY [facility] Blood Venipuncture / Unknown 02/06/2025 8:24 PM CDT 02/06/2025 8:28 PM CDT us Jacob Erickson MD CHEMISTRY ORDERABLES Final R esult [facility] [employer] [facility] CLIA# [id number] [address] [place] [address] * (ABNORMAL) BASIC METABOLIC PANEL (02/06/2025 8:24 PM CDT) Pathologist [facility] Emergency Department SODIUM 144 136 - 145 mmol/L 02/06/2025 8:58 PM CDT [facility] LABORATORY [facility] POTASSIUM 3.5 3.5 - 4.9 mmol/L 02/06/2025 8:58 PM T [facility] LABORATORY [facility] CHLORIDE 110(H) 98 - 107 mmol/L 02/06/2025 8:58 PM CDT [facility] LABORATORY [facility] CO2 24 22 - 29 mmol/L 02/06/2025 8:58 PM CDT [facility] [employer] [facility] CALCIUM 8.3(L) 8.6 - 10.2 mg/dL 02/06/2025 8:58 PM T [facility] [employer] [facility] BUN 10 6 - 20 mg/dL 02/06/2025 8:58 PM CDT [facility] [employer] [facility] CREATININE 0.77 0.51 - 0.95 mg/dL 02/06/2025 8:58 PM T [facility] LABORATORY [facility] GLUCOSE 90 74 - 99 mg/dL 02/06/2025 8:58 PM T [facility] LABORATORY [facility] GFR >60 >=60 mL/min/1.7 3 sq meter 02/06/2025 8:58 PM CDT [facility] LABORATORY [facility] Comment:eGFR calculated with 2020 CKD-EPI equation. Vegetarian diet, extremely high or low muscle mass, and may affect results. Cystatin C with Glomerular Filtration Rate is a suitable alternative for these patients. ANION GAP 10 8 - 16 mmol/L 02/06/2025 8:58 PM CDT [facility] LABORATORY [facility] Blood Venipuncture / Unknown 02/06/2025 8:24 PM CDT 02/06/2025 8:28 PM CDT us Jacob Erickson MD CHEMISTRY ORDERABLES Final R esult [facility] [employer] [facility] CLIA# [id number] [address] [place] [address] from Last [address] [place] [address] [facility] O
--- OUTSIDE RECORDS SUMMARY | 2025-02-08 16:01 | XMS_ITS | Clinical Summary ---
Author Organization [facility] Address [address] [place] [phone] Phone Care Team Providers Care Treatment Technician Name Role Phone Unavailable Primary Care [...] CDT - 02/06/2025 11:03 PM CDT Emergency [facility] Emergency Department [address] [place] [address] Jacob Erickson MD Knee laceration, [...] damage, tendon damage and retained foreign body [place] protocol: Patient identity confirmed: Arm band and [...] Laceration. Small joint effusion. DICTATION LOCATION: [address] Narrative 02/06/2025 8:38 PM CDT EXAM: [...] Laceration. Small joint effusion. DICTATION LOCATION: [address] Jacob Erickson MD DIAGNOSTIC IMAGING ORDERABLE S Final Result * XR CHEST PA OR AP 1 VW (02/06/2025 8:32 PM CDT) Anatomical Region Laterality Modality Chest Computed Radiogr aphy 02/06/2025 8:32 PM CDT Impressions 02/06/2025 8:38 PM CDT IMPRESSION: Clear lungs. DICTATION LOCATION: [address] Narrative 02/06/2025 8:38 PM CDT PORTABLE [...] Clear lungs. DICTATION LOCATION: Location 1 - [facility] us Jacob Erickson MD DIAGNOSTIC IMAGING ORDERABLE S Final Result * EKG 12-LEAD (02/06/2025 8:31 PM CDT) 02/06/2025 8:31 PM CDT Narrative INTERFACE SYSTEM - 02/07/2025 4:47 PM CDT [place] [id number] Test Date: 2025-02-06 Pat Name: [facility] Department: Room: CHECKOUT Gender: Female Administrative Analyst: jerald : 1995 Requested By: JACOB Matute Order Number: [id number] Reading MD: Sushil Taylor MD Measurements Intervals [place] Rate: 94 P: 72 [place]: 170 QRS: 90 QRSD: 84 T: 47 QT: 354 QTc: 442 Interpretive Statements Normal sinus rhythm BASELINE ARTIFACT Rightward axis Borderline ECG Electronically Signed On 02-07-2025 16:47:41 CDT by Sushil Taylor MD Procedure Note Sushil Taylor MD - 02/07/[address] [address] Test Date: 2025-02-06 Pat Name: [facility] Department: 97 Room: CHECKOUT Gender: Female Administrative Analyst: jerald : 1995 Requested By: JACOB Matute Order Number: [id number] Reading MD: Sushil Taylor MD Measurements Intervals [place] Rate: 94 P: 72 [place]: 170 QRS: 90 QRSD: 84 T: 47 QT: 354 QTc: 442 Interpretive Statements Normal sinus rhythm BASELINE ARTIFACT Rightward axis Borderline ECG Electronically Signed On 02-07-2025 16:47:41 CDT by Sushil Taylor MD us Jacob Erickson MD ECG ORDERABLES Final Result INTERFACE SYSTEM Refer to clinic/hospital department * HCG QUALITATIVE, BLOOD (02/06/2025 8:25 PM CDT) HCG QUAL, BLOOD Negative Negative 02/06/2025 9:12 PM CDT [facility] LABORATORY SERVICES [facility] Blood Venipuncture / Unknown 02/06/2025 8:25 PM CDT 02/06/2025 8:28 PM CDT Jacob Erickson MD CHEMISTRY ORDERABLES Final R esult [facility] [employer] SERVICES [facility] CLIA# [id number] [address] [place] [id number] * (ABNORMAL) CBC WITH DIFFERENTIAL (02/06/2025 8:24 PM CDT) Pathologist [facility] WBC 7.7 4.0 - 9.8 K/uL 02/06/2025 8:31 PM CDT [facility] LABORATORY SERVICES [facility] Comment:ANC = 5.09K/uL RBC 4.09 3.90 - 4.90 M/uL 02/06/2025 8:31 PM CDT [facility] LABORATORY SERVICES [facility] HEMOGLOBIN 12.8 11.8 - 14.8 g/dL 02/06/2025 8:31 PM CDT [facility] LABORATORY SERVICES [facility] HEMATOCRIT 39.5 35.5 - 44.0 % 02/06/2025 8:31 PM CDT [facility] LABORATORY [facility] MCV 96.6 82.0 - 99.0 fL 02/06/2025 8:31 PM CDT [facility] MCH 31.3 27.2 - 32.6 pg 02/06/2025 8:31 PM CDT [facility] MCHC 32.4 31.5 - 35.5 g/dL 02/06/2025 8:31 PM CDT [facility] RDW 13.0 11.5 - 14.5 % 02/06/2025 8:31 PM CDT [facility] RDW-STDEV 46.9 37.1 - 48.7 fL 02/06/2025 8:31 PM CDT [facility] PLATELETS 271 140 - 350 K/uL 02/06/2025 8:31 PM CDT [facility] LAB[facility]ATORY SERVICES - [place] MPV 9.2(L) 9.3 - 12.4 fL 02/06/2025 8:31 PM CDT [facility] [place] NEUTROPHILS 66 % 02/06/2025 8:31 PM CDT [facility] [place] LYMPHOCYTES 26 % 02/06/2025 8:31 PM CDT [facility] [place] MONOCYTES 5 % 02/06/2025 8:31 PM CDT [facility] [place] EOSINOPHILS 2 % 02/06/2025 8:31 PM CDT [facility] [place] BASOPHILS 1 % 02/06/2025 8:31 PM CDT [facility] [place] IMMATURE GRANULOCYTES 0 % 02/06/2025 8:31 PM CDT [facility] [place] NEUTROPHIL ABSOLUTE 5.09 1.90 - 7.00 K/uL 02/06/2025 8:31 PM CDT [facility] LAB[facility]ORY [facility] [place] LYMPHOCYTE ABSOLUTE 1.96 0.70 - 4.50 K/uL 02/06/2025 8:31 PM CDT [facility] LAB[facility] [place] MONOCYTE ABSOLUTE 0.41 0.10 - 1.30 K/uL 02/06/2025 8:31 PM CDT [facility] [place] EOSINOPHIL ABSOLUTE 0.13 0.00 - 0.70 K/uL 02/06/2025 8:31 PM CDT [facility] [place] BASOPHILS ABSOLUTE 0.08 0.00 - 0.20 K/uL 02/06/2025 8:31 PM CDT [facility] [place] IMMATURE GRANULOCYTES ABSOLUTE 0.03 0.00 - 0.03 K/uL 02/06/2025 8:31 PM CDT [facility] [place] Blood Venipuncture / Unknown 02/06/2025 8:24 PM CDT 02/06/2025 8:28 PM CDT us Jacob Erickson MD HEMATOLOGY ORDERABLES Final Result [facility] [employer] [facility] CLIA# [id number] [address] [place] [address] * PTT (02/06/2025 8:24 PM CDT) PTT 27.2 23.0 - 36.2 seconds 02/06/2025 8:45 PM CDT [facility] Blood Venipuncture / Unknown 02/06/2025 8:24 PM CDT 02/06/2025 8:28 PM CDT Jacob Erickson MD HEMATOLOGY ORDERABLES Final Result Performing Organization Address [facility] de Phone Number [facility] [employer] [facility] CLIA# [id number] [address] [place] [address] * PROTIME-INR (02/06/2025 8:24 PM CDT) PROTIME 13.4 12.3 - 14.9 Seconds 02/06/2025 8:45 PM CDT [facility] INR 1.0 0.9 - 1.1 02/06/2025 8:45 PM CDT [facility] Blood Venipuncture / Unknown 02/06/2025 8:24 PM CDT 02/06/2025 8:28 PM CDT Narrative [facility] LABORATORY [facility] - 02/06/2025 8:45 PM CDT INR Therapeutic Range: Adult: 2.0 - 3.0 for pulmonary embolism or prophylaxis against venous thrombosis or systemic embolization. 2.0 - 3.0 for patients with tissue heart valves. 2.5 - 3.5 for patients with mechanical heart valves or post [place]. Pediatric (12 years and under): 1.5 - 3.0 Although the target range in children is not well established, INR values of 1.5 - 3.0 are recommended for most patients. Higher values have been used in children with prosthetic cardiac valves and hereditary clotting disorders. [place] (<3 days) therapeutic ranges have not been established. Jacob Erickson MD HEMATOLOGY ORDERABLES Final Result Performing Organization Address [facility] Co de Phone Number [facility] [employer] [facility] CLIA# [id number] [address] [place] [address] * (ABNORMAL) ETHANOL LEVEL (02/06/2025 8:24 PM CDT) ETHANOL 111.00(H) <10.10 mg/dL 02/06/2025 8:58 PM CDT [facility] LABORATORY [facility] ETHANOL % 0.11 %w/v 02/06/2025 8:58 PM CDT [facility] LABORATORY [facility] Blood Venipuncture / Unknown 02/06/2025 8:24 PM CDT 02/06/2025 8:28 PM CDT us Jacob Erickson MD CHEMISTRY ORDERABLES Final R esult [facility] [employer] [facility] CLIA# [id number] [address] [place] [address] * (ABNORMAL) BASIC METABOLIC PANEL (02/06/2025 8:24 PM CDT) Pathologist [facility] SODIUM 144 136 - 145 mmol/L 02/06/2025 8:58 PM CDT [facility] LABORATORY [facility] POTASSIUM 3.5 3.5 - 4.9 mmol/L 02/06/2025 8:58 PM T [facility] LABORATORY [facility] CHLORIDE 110(H) 98 - 107 mmol/L 02/06/2025 8:58 PM CDT [facility] LABORATORY [facility] CO2 24 22 - 29 mmol/L 02/06/2025 8:58 PM CDT [facility] [employer] [facility] CALCIUM 8.3(L) 8.6 - 10.2 mg/dL 02/06/2025 8:58 PM T [facility] [employer] [facility] BUN 10 6 - 20 mg/dL 02/06/2025 8:58 PM CDT [facility] [employer] [facility] CREATININE 0.77 0.51 - 0.95 mg/dL 02/06/2025 8:58 PM T [facility] GLUCOSE 90 74 - 99 mg/dL 02/06/2025 8:58 PM T [facility] GFR >60 >=60 mL/min/1.7 3 sq meter 02/06/2025 8:58 PM CDT [facility] Comment:eGFR calculated with 2020 CKD-EPI equation. Vegetarian diet, extremely high or low muscle mass, and may affect results. Cystatin C with Glomerular Filtration Rate is a suitable alternative for these patients. ANION GAP 10 8 - 16 mmol/L 02/06/2025 8:58 PM CDT [facility] Blood Venipuncture / Unknown 02/06/2025 8:24 PM CDT 02/06/2025 8:28 PM CDT us Jacob Erickson MD CHEMISTRY ORDERABLES Final R esult [facility] [employer] [facility] CLIA# [id number] [address] [place] [address] from Last [address] [place] [address] [facility] OPEN ACCESS O
--- OUTSIDE RECORDS SUMMARY | 2025-02-08 16:01 | XMS_ITS | Clinical Summary ---
Author Organization [facility] [employer] Address [address] [place] [address] Care Team Providers Care Fish Machine Feeder Name Role Phone Az Taylor MD Primary Care Provider Source Comments [facility] [employer],non-owned Affiliates and Associated Physician Practices is amultiple site organization consisting of ambulatory clinics and hospital sitesin [place], [place], [place] and [place]. This disclosure is being madepursuant to the Care Everywhere program and may not contain all information available regarding this patient. Last updated 18.[facility] [employer] Allergies No known active allergies Medications * [...] Hx Hypercholesterolemia Neg Hx Hypertension Neg Hx NM<55(male) Neg Hx NM<65(female) Neg Hx Mental Health Neg Hx Migraine [...] patient's age to complete this topic Insurance [facility] Care Teams Fish Machine Feeder Relationship Specialty Start Date End Date Az Taylor MD [address] [place] [address] PCP - General Internal Medicine 11/06/16
[2025-02-08] MEDS: MORPHINE SULFATE (*CRX) 4 MG/ML INJ IV PUSH (16:30)
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
[2025-02-08] MEDS: ONDANSETRON INJ 4 MG/2 ML VIAL IV PUSH (16:40)
[2025-02-08 16:41] LABS: Hematocrit 42.2 % (37.0-47.0); Hemoglobin 13.8 g/dL (12.0-15.0); Immature Granulocyte Percent A 0.6 % (0-0.5); Lymphocytes Absolute Auto 1.72 K/mm3 (0.9-3.2); Mean Corpuscular HGB Conc 32.7 g/dl (32-36); Mean Corpuscular Hemoglobin 31.4 pg (26-34); Mean Corpuscular Volume 96.1 fl (80-100); Nucleated Red Blood Cells Absolute Auto 0.000 K/mm3 (0.0-0.012); Nucleated Red Blood Cells Perc 0.0 % (0.0-0.2); Platelet Count Result 224 k/mm3 (150-375); Red Blood Count 4.39 M/mm3 (4.2-5.4); White Blood Count 16.3 K/mm3 (4.5-10.0)
--- NOTE | 2025-02-08 16:49 | PC.NURSE ---
EDP aware of pt current VS
[2025-02-08 16:59] LABS: Anion Gap 10 mmol/L (4-12); Blood Urea Nitrogen 7 mg/dL (7-17); Calcium 9.5 mg/dL (8.4-10.2); Carbon Dioxide 25 mmol/L (22-30); Chloride 100 mmol/L (98-107); Estimated CRCL calculation 107 ml/min; Estimated Glomerular Filt Rate > 60; Glucose 95 mg/dL (65-110); Potassium 3.6 mmol/L (3.4-5.0); Sodium 135 mmol/L (137-145)
[2025-02-08 17:03] LABS: INR 1.2; Prothrombin Time 15.5 Seconds (11.1-14.7)
[2025-02-08 17:04] LABS: Partial Thromboplastin Time 26.9 Seconds (22.3-36.8)
[2025-02-08 17:14] LABS: CRP 21.9 mg/dL (<1.0)
[2025-02-08] MEDS: ACETAMINOPHEN 500 MG TABLET 1000 MG PO (17:18)
[2025-02-08] MEDS: SODIUM CHLORIDE 0.9% IV 1,000 ML 999 ML IV CONT ×2 (17:20→18:24)
[2025-02-08] MEDS: CEFEPIME 2 GM in SODIUM CHLORIDE 0.9% IV 50 ML 100 ML IVPB (17:21)
[2025-02-08 17:22] LABS: Add Urine Microscopic? YES; Appearance Urine Clear (Clear); Glucose Urine UA Negative (Negative); Leukocyte Esterase Ur Negative LEU/UL (Negative); Nitrate Urine Negative (Negative); Non Pathogenic Casts 0-2; Specific Grav Ur 1.016 (1.001-1.035)
[2025-02-08] MEDS: HYDROmorphone HCL INJ (*CRX) 1 MG/ML SYR 0.5 MG IV PUSH (17:25)
[2025-02-08 17:31] LABS: BEDSIDEPREGUCG Negative (Negative)
[2025-02-08] MEDS: VANCOMYCIN 2,000 MG/NS 500 ML 2,000 MG/500 ML BAG 250 MG IVPB (18:51)
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
--- NOTE | 2025-02-08 19:18 | PC.NURSE ---
Report given to Cynthia PECK, all questions answered
--- NOTE | 2025-02-08 19:37 | PC.NURSE ---
Vancomycin on hold, pt started to get red and itchy. Orders received and followed through, will continue to monitor.
[2025-02-08] MEDS: SODIUM CHLORIDE 0.9% IV 500 ML IV CONT (19:56)
--- NOTE | 2025-02-08 20:30 | ADMGEN ---
This patient, Sherry Burgos, was admitted to [facility] Surg Room 328-01. Patient/family oriented to hospital policies and general routines including ID bracelet, bed and alarms, visiting hours, pain management, procedures, bathroom and other care routines, personal items, smoking policy, room service/diet, and visiting hours. Information on how to activate the Rapid Response Team has been discussed. Patient/Family are encouraged to report perceived risks to care and to ask questions if they do not understand what they are told or what they should do.
[2025-02-08] MEDS: KETOROLAC 30 MG/ML VIAL (*BKC) IV PUSH (23:02)
[2025-02-09] MEDS: ONDANSETRON INJ 4 MG/2 ML VIAL IV PUSH ×4 (04:27→20:41)
[2025-02-09] MEDS: CEFEPIME 2 GM in SODIUM CHLORIDE 0.9% IV 50 ML 100 ML IVPB ×2 (04:27→16:37)
[2025-02-09] MEDS: HYDROcodone/acetaminophen (*CRX) 5-325 MG TABLET 1 TAB PO ×4 (04:27→20:42)
[2025-02-09 06:00] VITALS: BP 96/50; PULSE 71; RESP 14; TEMP 36.4; O2SAT 100
[2025-02-09 06:02] LABS: Hematocrit 34.9 % (37.0-47.0); Hemoglobin 11.0 g/dL (12.0-15.0); Immature Granulocyte Percent A 0.6 % (0-0.5); Lymphocytes Absolute Auto 0.98 K/mm3 (0.9-3.2); Mean Corpuscular HGB Conc 31.5 g/dl (32-36); Mean Corpuscular Hemoglobin 31.4 pg (26-34); Mean Corpuscular Volume 99.7 fl (80-100); Nucleated Red Blood Cells Absolute Auto 0.000 K/mm3 (0.0-0.012); Nucleated Red Blood Cells Perc 0.0 % (0.0-0.2); Platelet Count Result 163 k/mm3 (150-375); Red Blood Count 3.50 M/mm3 (4.2-5.4); White Blood Count 11.2 K/mm3 (4.5-10.0)
[2025-02-09 06:25] LABS: Alanine Aminotransferase 29 U/L (6-35); Albumin Level 3.2 g/dL (3.5-5.1); Alkaline Phosphatase 72 U/L (38-126); Anion Gap 6 mmol/L (4-12); Aspartate Amino Transferase 40 U/L (14-36); Bilirubin,Total 1.6 mg/dL (0.2-1.3); Blood Urea Nitrogen 7 mg/dL (7-17); Calcium 8.3 mg/dL (8.4-10.2); Carbon Dioxide 24 mmol/L (22-30); Chloride 106 mmol/L (98-107); Estimated CRCL calculation 110 ml/min; Estimated Glomerular Filt Rate > 60; Glucose 88 mg/dL (65-110); Potassium 3.4 mmol/L (3.4-5.0); Sodium 136 mmol/L (137-145); Total Protein 5.7 g/dL (6.3-8.2)
[2025-02-09] MEDS: LINEZOLID 600 MG/300 ML 600 MG/300 ML SOLN 300 MG IVPB ×2 (09:08→20:41)
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
--- NOTE | 2025-02-09 13:10 | P.PNIM_ITS ---
Progress Note: A&P Assessment and Plan (1) Sepsis: Qualifiers: Sepsis type: sepsis due to unspecified organism Sepsis acute organ dysfunction status: without acute organ dysfunction Qualified Code(s): A41.9 - Sepsis, unspecified organism Code(s): A41.9 - Sepsis, unspecified organism Status: Acute Assessment and Plan: - meets SIRS criteria: HR greater than 90, WBC greater than 12 - lactic acid: 0.9 - 30 mL/kg = 2.5 L, given in the ED - suspected source: Cellulitic knee - started on vancomycin and cefepime, did not tolerate vancomycin which was exchanged to linezolid - blood cultures drawn on 02/08, follow-up - monitor hemodynamic stability (2) Cellulitis of knee, right: Code(s): L03.115 - Cellulitis of right lower limb Status: Acute Assessment and Plan: - CXR, 02/08: 1. Moderate soft tissue stranding and soft tissue gas surrounding the anterior aspect of the right knee. These findings may be posttraumatic or infectious. Clinically correlate. 2: Small joint effusion. - patient started on cefepime and vancomycin in the ED on 02/08. Patient however had adverse reaction to vancomycin including itching and hypotension. Vancomycin exchanged to linezolid IVPB. - orthopedics consulted and MRI ordered - analgesics p.r.n. - blood cultures obtained on 02/08, follow Plan Headache likely migraine will try Excedrin p.r.n. if not resolving will get CT head/neck Fall injury on 02/06/2025 Diet: Regular GI Prophylaxis: N/a DVT Prophylaxis: SCDs IV fluids: 2.5 L bolus will start gentle IV fluid Lines/Tubes: Peripheral IV Code Status: Full code Subjective Date/time seen: 02/09/25 13:10 Interval history: Complains of headache which is feels like her regular migraine. Chipped offered to after the fall. All body is sore but no particular neck pain or headache. Remains afebrile. Right knee hurts Review of Systems Review of Systems: All systems reviewed & are unremarkable except as noted in HPI and below Exam Narrative: GENERAL: Ill-appearing, well-nourished, and in no acute distress. HEAD: Normocephalic, atraumatic. EYES: Non injected, non icteric ENT: Nares clear, no rhinorrhea or epistaxis. Gross auditory acuity intact. NECK: Supple. No meningismus. CHEST: Speaking in full sentences. No respiratory distress. Bilateral clear to auscultation HEART: Regular rate and rhythm. . ABDOMEN: Soft, nondistended. No rigidity or guarding. Not peritoneal EXTREMITIES: Normal range of motion. No lower extremity edema. Right knee with laceration which is sutured. Surrounding which is erythema and swelling which is tender to touch. Restricted range of motion due to pain and swelling of right knee SKIN: Warm, dry, no rash. NEURO: No focal deficits. Alert and oriented. Answering questions. Following commands. Normal speech without aphasia or dysarthria. PSYCH: Normal mood and affect. Objective Data Vital Signs Vital Signs: Vital Signs - 24 hr 02/08/25 13:32 02/08/25 14:49 02/08/25 14:52 Temperature 98.6 F 98.4 F Pulse Rate 107 H 93 91 Respiratory Rate 20 12 17 Blood Pressure 100/65 122/70 Pulse Oximetry 100 100 100 Oxygen Delivery Room Air Room Air 02/08/25 15:00 02/08/25 15:01 02/08/25 15:15 Temperature Pulse Rate 90 92 97 Respiratory Rate 14 8 L 23 H Blood Pressure 113/73 Pulse Oximetry 92 100 100 Oxygen Delivery 02/08/25 15:29 02/08/25 15:30 02/08/25 15:45 Temperature Pulse Rate 90 94 90 Respiratory Rate 14 13 16 Blood Pressure 113/73 Pulse Oximetry 99 97 Oxygen Delivery 02/08/25 15:46 02/08/25 16:00 02/08/25 16:15 Temperature Pulse Rate 90 97 93 Respiratory Rate 18 15 17 Blood Pressure 121/75 Pulse Oximetry 97 100 99 Oxygen Delivery 02/08/25 16:30 02/08/25 16:45 02/08/25 16:46 Temperature 101.8 F H Pulse Rate 96 100 96 Respiratory Rate 12 16 12 Blood Pressure 121/75 Pulse Oximetry 99 Oxygen Delivery 02/08/25 17:00 02/08/25 17:15 02/08/25 17:20 Temperature Pulse Rate 100 99 93 Respiratory Rate 14 13 13 Blood Pressure 112/73 Pulse Oximetry 99 100 99 Oxygen Delivery 02/08/25 17:27 02/08/25 17:31 02/08/25 17:45 Temperature Pulse Rate 91 102 H 93 Respiratory Rate 14 16 12 Blood Pressure 112/73 Pulse Oximetry 98 99 94 Oxygen Delivery 02/08/25 18:13 02/08/25 18:14 02/08/25 18:15 Temperature Pulse Rate 98 103 H Respiratory Rate 11 L 19 Blood Pressure 107/73 Pulse Oximetry 100 100 Oxygen Delivery 02/08/25 18:16 02/08/25 18:53 02/08/25 19:37 Temperature 99.4 F 99.1 F 99.4 F Pulse Rate 94 93 Respiratory Rate 12 18 Blood Pressure 107/73 105/59 L Pulse Oximetry 100 100 Oxygen Delivery 02/08/25 20:07 02/08/25 21:11 02/08/25 21:32 Temperature 99.6 F 98.7 F Pulse Rate 82 82 86 Respiratory Rate 18 18 14 Blood Pressure 104/69 92/53 L Pulse Oximetry 100 100 99 Oxygen Delivery Room Air 02/09/25 06:00 02/09/25 09:17 Temperature 97.6 F Pulse Rate 71 Respiratory Rate 14 Blood Pressure 96/50 L Pulse Oximetry 100 Oxygen Delivery Room Air Intake/Output Intake/Output: Intake & Output 02/06/25 02/07/25 02/08/25 02/09/25 23:59 23:59 23:59 23:59 Intake Total 2550 1540 Output Total 750 Balance 2550 790 Meds/Results Medications: Active Medications Generic Name Dose Route Start Last Admin Trade Name Freq PRN Reason Stop Dose Admin Acetaminophen 650 mg 02/08/25 18:43 Acetaminophen 325 Mg Tablet PO Q4H PRN Mild Pain (1-3) or Fever Hydrocodone Bitart/Acetaminophen 1 tab 02/08/25 22:25 02/09/25 09:17 Hydrocodone/Acetaminophen (*Crx) 5-325 Mg Tablet PO 1 tab Q4H PRN Administration Pain Rated 4-6 Albuterol 2 puff 02/08/25 21:35 Albuterol Sulfate (*Sp) Aerosol 1 Puff INHALATION Q4-6H PRN Shortness Of Breath Docusate Sodium 100 mg 02/08/25 22:26 Docusate Sodium 100 Mg Capsule PO Q12H PRN Constipation Linezolid 600 mg in 300 mls @ 300 mls/hr 02/09/25 09:00 02/09/25 10:08 Zyvox IVPB Infused Q12HR ADELAIDA Infusion Cefepime HCl 2 gm/ Sodium 50 mls @ 100 mls/hr 02/09/25 05:00 02/09/25 04:57 Chloride IVPB Infused Q12H ADELAIDA Infusion Morphine Sulfate 4 mg 02/08/25 18:43 Morphine Sulfate (*Crx) 4 Mg/Ml Inj IV PUSH Q2H PRN Pain Rated 7-10 Ondansetron HCl 4 mg 02/08/25 18:43 02/09/25 09:17 Ondansetron Inj 4 Mg/2 Ml Vial IV PUSH 4 mg Q4H PRN Administration Nausea Radiology Results: ITS Impressions Knee CT 02/08/25 18:15 IMPRESSION: 1. Moderate soft tissue stranding and soft tissue gas surrounding the anterior aspect of the right knee. These findings may be posttraumatic or infectious. Clinically correlate. 2: Small joint effusion. Labs Labs: Laboratory Results - last 24 hr 02/08/25 02/08/25 02/08/25 16:33 16:36 17:11 WBC 16.3 H RBC 4.39 Hgb 13.8 Hct 42.2 MCV 96.1 MCH 31.4 MCHC 32.7 RDW 13.2 Plt Count 224 MPV 9.3 Immature Gran % (Auto) 0.6 H Neut % (Auto) 81.7 H Lymph % (Auto) 10.6 L [place] % (Auto) 6.5 Eos % (Auto) 0.2 Baso % (Auto) 0.4 Lymph # (Auto) 1.72 [place] # (Auto) 1.1 H Eos # (Auto) 0.0 Baso # (Auto) 0.1 Abs Immat Gran (auto) 0.09 H Absolute Neuts (auto) 13.3 H Absolute Nucleated RBC 0.000 Nucleated RBC % 0.0 ESR 13 PT 15.5 H INR 1.2 APTT 26.9 D-Dimer < 0.27 Sodium 135 L Potassium 3.6 Chloride 100 Carbon Dioxide 25 Anion Gap 10 BUN 7 Creatinine 0.73 Estim Creat Clear Calc 107 Estimated GFR > 60 Glucose 95 Lactic Acid 0.9 Calcium 9.5 Total Bilirubin AST ALT Alkaline Phosphatase C-Reactive Protein 21.9 H Total Protein Albumin Urine Color Yellow Urine Appearance Clear Urine pH 6.5 Ur Specific [place] 1.016 Urine Protein Trace Urine Glucose (UA) Negative Urine Ketones 2+ H Ur Blood (Man) Negative Urine Nitrate Negative Urine Bilirubin Negative Urine Urobilinogen 2.0 H Leukocyte Esterase Rfl Negative Urine RBC 0-2 Urine WBC 0-5 Ur Squamous Epith Cells None seen Urine Bacteria None seen Urine Casts 0-2 POC Urine HCG, Qual 02/08/25 02/09/25 02/09/25 17:29 05:39 05:40 WBC 11.2 H RBC 3.50 L Hgb 11.0 L Hct 34.9 L MCV 99.7 MCH 31.4 MCHC 31.5 L RDW 13.6 Plt Count 163 MPV 9.7 Immature Gran % (Auto) 0.6 H Neut % (Auto) 81.3 H Lymph % (Auto) 8.8 L [place] % (Auto) 8.0 Eos % (Auto) 0.9 Baso % (Auto) 0.4 Lymph # (Auto) 0.98 [place] # (Auto) 0.9 H Eos # (Auto) 0.1 Baso # (Auto) 0.0 Abs Immat Gran (auto) 0.07 H Absolute Neuts (auto) 9.1 H Absolute Nucleated RBC 0.000 Nucleated RBC % 0.0 ESR PT INR APTT D-Dimer Sodium 136 L Potassium 3.4 Chloride 106 Carbon Dioxide 24 Anion Gap 6 BUN 7 Creatinine 0.72 Estim Creat Clear Calc 110 Estimated GFR > 60 Glucose 88 Lactic Acid Calcium 8.3 L Total Bilirubin 1.6 H AST 40 H ALT 29 Alkaline Phosphatase 72 C-Reactive Protein Total Protein 5.7 L Albumin 3.2 L Urine Color Urine Appearance Urine pH Ur Specific [place] Urine Protein Urine Glucose (UA) Urine Ketones Ur Blood (Man) Urine Nitrate Urine Bilirubin Urine Urobilinogen Leukocyte Esterase Rfl Urine RBC Urine WBC Ur Squamous Epith Cells Urine Bacteria Urine Casts POC Urine HCG, Qual Negative
[2025-02-09 14:00] VITALS: BP 115/64; PULSE 80; RESP 16; TEMP 36.1; O2SAT 99
[2025-02-09] MEDS: SODIUM CHLORIDE 0.9% IV 1,000 ML 75 ML IV CONT (14:32)
[2025-02-09] MEDS: ACETAMINOPHEN/ASPIRIN/CAFFEINE 250-250-65 MG TABLET 1 TABLET PO ×2 (16:38→22:15)
[2025-02-09 20:16] VITALS: PULSE 92; RESP 20; O2SAT 97
[2025-02-09 22:17] VITALS: BP 95/57; PULSE 97; RESP 16; TEMP 36.9; O2SAT 98
[2025-02-10] VITALS (11 sets, daily range): BP systolic 96–118; BP diastolic 57–69; PULSE 73–112; RESP 14–18; TEMP 36.8–38.3; O2SAT 96–100
[2025-02-10] MEDS: MORPHINE SULFATE (*CRX) 4 MG/ML INJ IV PUSH ×3 (02:05→19:35)
[2025-02-10] MEDS: CEFEPIME 2 GM in SODIUM CHLORIDE 0.9% IV 50 ML 100 ML IVPB ×2 (04:57→17:13)
[2025-02-10] MEDS: ACETAMINOPHEN 325 MG TABLET 650 MG PO (05:02)
[2025-02-10 06:21] LABS: Hematocrit 32.5 % (37.0-47.0); Hemoglobin 10.4 g/dL (12.0-15.0); Immature Granulocyte Percent A 0.5 % (0-0.5); Lymphocytes Absolute Auto 1.28 K/mm3 (0.9-3.2); Mean Corpuscular HGB Conc 32.0 g/dl (32-36); Mean Corpuscular Hemoglobin 31.1 pg (26-34); Mean Corpuscular Volume 97.3 fl (80-100); Nucleated Red Blood Cells Absolute Auto 0.000 K/mm3 (0.0-0.012); Nucleated Red Blood Cells Perc 0.0 % (0.0-0.2); Platelet Count Result 180 k/mm3 (150-375); Red Blood Count 3.34 M/mm3 (4.2-5.4); White Blood Count 9.1 K/mm3 (4.5-10.0)
[2025-02-10 06:46] LABS: Alanine Aminotransferase 37 U/L (6-35); Albumin Level 3.1 g/dL (3.5-5.1); Alkaline Phosphatase 80 U/L (38-126); Anion Gap 4 mmol/L (4-12); Aspartate Amino Transferase 43 U/L (14-36); Bilirubin,Total 1.6 mg/dL (0.2-1.3); Blood Urea Nitrogen 4 mg/dL (7-17); Calcium 8.3 mg/dL (8.4-10.2); Carbon Dioxide 27 mmol/L (22-30); Chloride 106 mmol/L (98-107); Estimated CRCL calculation 125 ml/min; Estimated Glomerular Filt Rate > 60; Glucose 98 mg/dL (65-110); Magnesium 1.9 mg/dL (1.6-2.3); Potassium 3.3 mmol/L (3.4-5.0); Sodium 137 mmol/L (137-145); Total Protein 5.7 g/dL (6.3-8.2)
--- NOTE | 2025-02-10 08:08 | PM.PNORT ---
Progress Note: A&P Assessment and Plan (1) Septic prepatellar bursitis of right knee: Code(s): M71.161 - Other infective bursitis, right knee Status: Acute Assessment and Plan: MRI findings reviewed with the patient. Inflammation, infection and debris of the anterior right knee. No improvement with IV antibiotics. Still with swelling, erythema and now increasing pain. Purulent drainage from the wound. Treatment options including surgery and non operative treatment reviewed with the patient. She would like to proceed with surgery. indicated for right knee debridement of prepatellar bursa. Plan Discussed nonoperative and operative treatment options with the patient. Risks and benefits of each as well as alternatives were reviewed. All of the patient's questions were answered. The risks of surgery reviewed including but not limited to: Neurovascular damage, wound complication, infection, blood clot, pulmonary embolus, stroke, myocardial infarction, and anesthetic risks up to and including . Continued pain and possible dysfunction were explained. Specific risks of the procedure including later recurrence of deformity. No guarantees were offered. If complications occur, the patient understands the need for further treatment, possible further surgery. Patient verbalizes understanding and wishes to proceed. PLAN: Right knee debridement Subjective Subjective Date/Time Seen: 02/10/25 08:08 Principal diagnosis: right knee septic bursitis Interval history: increased pain right knee overnight. Still with purulent drainage. MRI shows debris in the anterior knee soft tissue. Review of Systems Constitutional: Constitutional: Denies fever(s) Eyes: Eyes: Denies blurry vision ENT: Reports Normal hearing present Cardiovascular: Cardiovascular: Denies chest pain and Denies dyspnea Respiratory: Respiratory: Denies dyspnea and Denies wheezing Gastrointestinal: Gastrointestinal: Denies abdominal pain Genitourinary: Genitourinary: Denies urinary urgency Musculoskeletal: Musculoskeletal: Reports as per HPI and Denies numbness Integumentary/Breasts: Skin/Breast: Denies changing lesions and Denies sores Neurologic: Reports Normal hearing present, Denies behavioral changes, Denies confusion, Denies numbness and Denies convulsions Psychiatric: Psychiatric: Denies behavioral changes, Denies confusion and Denies hallucinations Endocrine: Endocrine: Denies heat intolerance Hematologic/Lymphatic: Hematologic/Lymphatic: Denies easy bleeding Allergic/Immunologic: Allergic/Immunologic: Denies wheezing Exam Const: General: cooperative, ill appearing and average body habitus Nutritional Appearance: average body habitus Orientation/consciousness: patient oriented x3 Limitations: no limitations HENMT: Head: normal to inspection Ears: hearing grossly normal bilaterally Face/Nose/Sinus: Normal external nose present and normal facial exam Face and sinus: normal facial exam Mouth: Yes moist mucous membranes Teeth and gingiva: dentition normal Eyes: General: appearance normal, both eyes and all related structures Pupils: Equal, round and reactive pupils present EOM: EOMs intact bilaterally Neck: Neck: normal visual inspection Chest: Chest palpation & inspection: normal inspection of the chest Resp: Effort & Inspection: normal respiratory effort and able to speak in complete sentences Cardio: Jugular venous distension: no JVD Neuro: General: patient oriented x3 Cranial nerves: Yes Equal, round and reactive pupils present Extrem: Right lower extremity: knee Details: abnormal to inspection Details: erythematous, tenderness Location: of the patella; not of the medial joint line and not of the lateral joint line, swelling Location: of the patella and of the pre-patellar area, abnormal ROM Details: pain with active ROM during Details: in extension and in flexion and pain with passive ROM during Details: in extension and in flexion, abrasion ( Sutures over the anterior knee with dried serous fluid surrounding sutures.), ecchymosis and other ( Purulent drainage from the wound) and lower leg ( Erythema) Objective Data Vital Signs Vital Signs: Vital Signs - 24 hr 02/09/25 09:17 02/09/25 14:00 02/09/25 20:00 Temperature 96.9 F L Pulse Rate 80 Respiratory Rate 16 Blood Pressure 115/64 Pulse Oximetry 99 Oxygen Delivery Room Air Room Air Fraction of Inspired Oxygen 02/09/25 20:16 02/09/25 22:17 02/10/25 06:45 Temperature 98.4 F 98.9 F Pulse Rate 92 97 73 Respiratory Rate 20 16 16 Blood Pressure 95/57 L 98/57 L Pulse Oximetry 97 98 99 Oxygen Delivery Room Air Fraction of Inspired Oxygen 21 Intake/Output Intake/Output: Intake & Output 02/07/25 02/08/25 02/09/25 02/10/25 23:59 23:59 23:59 23:59 Intake Total 2550 1830 350 Output Total 750 Balance 2550 1080 350 Meds/Results Medications: Active Medications Generic Name Dose Route Start Last Admin Trade Name Freq PRN Reason Stop Dose Admin Acetaminophen 650 mg 02/08/25 18:43 02/10/25 05:02 Acetaminophen 325 Mg Tablet PO 650 mg Q4H PRN Administration Mild Pain (1-3) or Fever Acetaminophen/Aspirin/Caffeine 1 tablet 02/09/25 13:10 02/09/25 22:15 Acetaminophen/Aspirin/Caffeine 250-250-65 Mg Tablet PO 1 tablet Q6H PRN Administration Migraine Headache Hydrocodone Bitart/Acetaminophen 1 tab 02/08/25 22:25 02/09/25 20:42 Hydrocodone/Acetaminophen (*Crx) 5-325 Mg Tablet PO 1 tab Q4H PRN Administration Pain Rated 4-6 Albuterol 2 puff 02/08/25 21:35 Albuterol Sulfate (*Sp) Aerosol 1 Puff INHALATION Q4-6H PRN Shortness Of Breath Docusate Sodium 100 mg 02/08/25 22:26 Docusate Sodium 100 Mg Capsule PO Q12H PRN Constipation Linezolid 600 mg in 300 mls @ 300 mls/hr 02/09/25 09:00 02/09/25 20:41 Zyvox IVPB 300 mls/hr Q12HR ADELAIDA Administration Cefepime HCl 2 gm/ Sodium 50 mls @ 100 mls/hr 02/09/25 05:00 02/10/25 04:57 Chloride IVPB 100 mls/hr Q12H ADELAIDA Administration Sodium Chloride 1,000 mls @ 75 mls/hr 02/09/25 13:15 02/09/25 14:32 Normal Saline Iv IV CONT 75 mls/hr .[id number] ADELAIDA Administration Morphine Sulfate 4 mg 02/08/25 18:43 02/10/25 02:05 Morphine Sulfate (*Crx) 4 Mg/Ml Inj IV PUSH 4 mg Q2H PRN Administration Pain Rated 7-10 Ondansetron HCl 4 mg 02/08/25 18:43 02/09/25 20:41 Ondansetron Inj 4 Mg/2 Ml Vial IV PUSH 4 mg Q4H PRN Administration Nausea Radiology Results: ITS Impressions Knee CT 02/08/25 18:15 IMPRESSION: 1. Moderate soft tissue stranding and soft tissue gas surrounding the anterior aspect of the right knee. These findings may be posttraumatic or infectious. Clinically correlate. 2: Small joint effusion. Knee MRI 02/09/25 13:46 IMPRESSION: 1. Edema within the patella without discrete fracture line most likely related to post traumatic bone contusion. 2. There is a likely sutured skin laceration overlying the inferior patella with a few foci of gas, foreign debris metallic susceptibility artifact related to penetrating injury prominent surrounding soft tissue edema which could represent posttraumatic contusion or cellulitis. No organized fluid collection to suggest abscess or septic bursitis. 3. Complete tear of the posterior cruciate ligament. Remaining stabilizing ligaments, cartilage and menisci remain intact. 4. Nonspecific small likely reactive knee joint effusion without significant thickening of the enhancing synovium or inflammatory changes in the immediately surrounding fat to elevated concern for infection. Labs Labs: Laboratory Results - last 24 hr 02/10/25 06:05 WBC 9.1 RBC 3.34 L Hgb 10.4 L Hct 32.5 L MCV 97.3 MCH 31.1 MCHC 32.0 RDW 13.4 Plt Count 180 MPV 9.6 Immature Gran % (Auto) 0.5 Neut % (Auto) 75.7 H Lymph % (Auto) 14.0 L [place] % (Auto) 8.8 H Eos % (Auto) 0.8 Baso % (Auto) 0.2 Lymph # (Auto) 1.28 [place] # (Auto) 0.8 H Eos # (Auto) 0.1 Baso # (Auto) 0.0 Abs Immat Gran (auto) 0.05 H Absolute Neuts (auto) 6.9 H Absolute Nucleated RBC 0.000 Nucleated RBC % 0.0 Sodium 137 Potassium 3.3 L Chloride 106 Carbon Dioxide 27 Anion Gap 4 BUN 4 L Creatinine 0.63 L Estim Creat Clear Calc 125 Estimated GFR > 60 Glucose 98 Calcium 8.3 L Magnesium 1.9 Total Bilirubin 1.6 H AST 43 H ALT 37 H Alkaline Phosphatase 80 Total Protein 5.7 L Albumin 3.1 L
--- NOTE | 2025-02-10 08:13 | WPDHPUPDATE1 ---
History and Physical Update Update Date/Time: 02/10/25 08:13 History and Physical has been reviewed, including an updated exam of the patient. There are NO changes in the patient's condition. Risks, benefits, and alternatives have been discussed and questions answered. Patient agrees to proceed with procedure.
[2025-02-10] MEDS: SODIUM CHLORIDE 0.9% IV 1,000 ML 75 ML IV CONT (09:51)
[2025-02-10] MEDS: LINEZOLID 600 MG/300 ML 600 MG/300 ML SOLN 300 MG IVPB ×2 (09:51→20:59)
[2025-02-10] MEDS: HYDROmorphone HCL INJ (*CRX) 1 MG/ML SYR 0.5 MG IV PUSH (10:10)
--- NOTE | 2025-02-10 13:44 | WPDANESEPPF ---
Anes - Initial Pre Proc Eval Procedure: Operation Date: 02/10/25 14:00 Proposed Procedures p Incision and Debridement Prepatellar Bursa - Eleazar Parada MD Date/Time: 02/10/25 13:44 Surgeon: Carlos Lucas MD Pre Op Diagnosis: Cellulitis R knee failed PO abx Patient Data Age: 29 Gender: F Height: 1.7 m Weight: 84.9 kg Last Vital Signs Temp 37.2 C 02/10/25 06:45 Pulse 73 02/10/25 06:45 Resp 16 02/10/25 06:45 BP 98/57 L 02/10/25 06:45 Pulse Ox 99 02/10/25 06:45 O2 Del Method Room Air 02/10/25 10:00 FiO2 21 02/09/25 20:16 Allergies Allergy/AdvReac Type Severity Reaction Status Date / Time ciprofloxacin Allergy Severe Swelling Verified 02/08/25 20:44 amoxicillin Allergy Intermediate Swelling Verified 02/08/25 20:44 Penicillins Allergy Intermediate Swelling Verified 02/08/25 20:44 vancomycin Allergy Intermediate Hypotension Verified 02/09/25 07:01 Home Medications ?Medication ?Instructions ?Recorded ?Confirmed ?Type albuterol sulfate 90 mcg/actuation See Rx Instructions .Route 06/24/23 02/08/25 Rx aerosol inhaler .COMPLEX #8.5 grams Laboratory Tests 02/10/25 06:05 WBC 9.1 K/mm3 (4.5-10.0) RBC 3.34 L M/mm3 (4.2-5.4) Hgb 10.4 L g/dL (12.0-15.0) Hct 32.5 L % (37.0-47.0) MCV 97.3 fl (80-100) MCH 31.1 pg (26-34) MCHC 32.0 g/dl (32-36) RDW 13.4 % (11.5-14.5) Plt Count 180 k/mm3 (150-375) MPV 9.6 fl (7.4-10.4) Immature Gran % (Auto) 0.5 % (0-0.5) Neut % (Auto) 75.7 H % (45.5-73.1) Lymph % (Auto) 14.0 L % (18.3-44.2) [place] % (Auto) 8.8 H % (2.6-8.5) Eos % (Auto) 0.8 % (0-4.4) Baso % (Auto) 0.2 % (0.2-1.2) Lymph # (Auto) 1.28 K/mm3 (0.9-3.2) [place] # (Auto) 0.8 H K/mm3 (0.1-0.6) Eos # (Auto) 0.1 K/mm3 (0-0.3) Baso # (Auto) 0.0 K/mm3 (0.0-0.1) Abs Immat Gran (auto) 0.05 H K/mm3 (0.00-0.031) Absolute Neuts (auto) 6.9 H K/mm3 (1.3-6.7) Absolute Nucleated RBC 0.000 K/mm3 (0.0-0.012) Nucleated RBC % 0.0 % (0.0-0.2) Sodium 137 mmol/L (137-145) Potassium 3.3 L mmol/L (3.4-5.0) Chloride 106 mmol/L (98-107) Carbon Dioxide 27 mmol/L (22-30) Anion Gap 4 mmol/L (4-12) BUN 4 L mg/dL (7-17) Creatinine 0.63 L mg/dL (0.7-1.0) Estim Creat Clear Calc 125 ml/min Estimated GFR > 60 (59 - ) Glucose 98 mg/dL (65-110) Calcium 8.3 L mg/dL (8.4-10.2) Magnesium 1.9 mg/dL (1.6-2.3) Total Bilirubin 1.6 H mg/dL (0.2-1.3) AST 43 H U/L (14-36) ALT 37 H U/L (6-35) Alkaline Phosphatase 80 U/L (38-126) Total Protein 5.7 L g/dL (6.3-8.2) Albumin 3.1 L g/dL (3.5-5.1) Patient hx anesthesia problems: none Family hx anesthesia problems: none Results Review: All pre-operative results and documents have been reviewed as part of the pre-operative evaluation. [facility] Past Medical History Medical History (Updated 02/10/25 @ 08:11 by Eleazar Parada MD) Septic prepatellar bursitis of right knee Contact dermatitis Asthma Surgical History Surgical History H/O left wrist surgery Dr Ibrahim Social History Social History Smoking status: Never smoker Alcohol intake: current Drinks per week: 4 Substance use: never Lack of Transportation: No Lack of Food: Never True Current Housing: I Have Housing Concerned About Future Housing: No Difficulty Paying Gas/Electric Bills: No Difficulty Paying for Meds: No Currently Unemployed: No Education: Associate Degree Difficulty w/ Childcare or Family Care: No Spiritual care concerns: No Anes - Eval Final PreProcedure Day of Procedure 02/10/25 13:44 Patient weight: overweight Heart: regular rate and rhythm Lungs: clear to auscultation Airway: Mallampati scale class II Neurological: alert and oriented Last oral intake: >/= 8 hours ASA classification: III Emergent: no Anesthetic plan: proceed Anesthesia type and monitoring: general LMA and standard monitoring Results Review: All pre-operative results and documents have been reviewed as part of the pre-operative evaluation. Informed Consent: The patient's anesthetic plan and its attendant risks and benefits were discussed with the patient/family/POA. Questions were solicited and answers provided to the satisfaction of the patient/family/POA.
[2025-02-10] MEDS: LACTATED RINGERS 1,000 ML 30 ML IV CONT (13:45)
[2025-02-10] MEDS: fentaNYL CITRATE INJ (*CRX) 100 MCG/2 ML VIAL 50 MCG IV PUSH ×2 (13:55→14:05)
[2025-02-10] MEDS: BUPIVACAINE/EPINEPHRINE 0.5% 50 ML VIAL 30 ML INFILTRATE (15:11)
--- NOTE | 2025-02-10 15:25 | P.OP_ITS ---
Procedure Note - Detailed Date of Procedure 02/10/25 Pre-op Diagnosis Cellulitis R knee failed PO abx Post-op Diagnosis Other (Septic prepatellar bursitis right knee) Procedure Performed Excision of prepatellar bursa right knee with debridement Surgeon Eleazar Parada MD Mental Health Director 1st personalized living assistant Anesthesia General Indications 29-year-old who injured her right knee on a river float trip. Laceration to the anterior portion of the knee which was treated at an outside emergency room. S he has developed swelling, redness purulent drainage from the knee. MRI shows septic bursitis of the prepatellar area. She presents for operative treatment. Findings Septic bursitis right prepatellar bursa extending circumferentially around the laceration. Wound communicates with the anterior patella cortex. No intra- articular involvement. Description of Procedure Patient identified in the preoperative holding. Informed consent given. Operative extremity marked. Patient received intravenous antibiotics. Patient brought to the operating room where underwent general anesthetic by anesthesia team. Positioned supine on operating room table. Time-out performed confirming the patient, site of the surgery and the plan. Right knee prepped and draped usual sterile surgical fashion using a Betadine prep solution. The previous sutures that had been placed at the outside facility were removed, the laceration over the anterior knee opened up and purulent drainage was noted. Culture and Gram stain of this were taken. A large pieces of foreign material were noted in the wound and were removed with a rongeur. Loose soft tissue pieces were removed with a rongeur. The prepatellar bursa was excised with 15 blade knife and electrocautery. This was excised and passed off. Communication with the anterior patella was noted. Approximately 6 cm undermining proximally and 4 cm distally was noted. This was all debrided with the rongeur. Thorough irrigation was then done with antibiotic solution. Tobramycin powder was then placed into the open wound. Bleeding points were coagulated with electrocautery. Subcutaneous tissue was then approximated with 2-0 Vicryl interrupted suture. Skin approximated with 3-0 nylon interrupted suture. Thought was entertained about drain placement, however there was no active drainage or bleeding. Sterile dressing applied. The patient was then woken from anesthesia, extubated and taken to the recovery room in stable condition. All sponge, needle, instrument counts were correct at the end of the case. Estimated Blood Loss 20 Tourniquet Time Total Tourniquet Time: 0 Drains No Packing No Pathology Yes (Deep wound culture and Gram stain right prepatellar bursa) Complications None Condition Stable Disposition PACU [facility] Billing Surgery - Charge Forward: Surgery Billing ([id number])
[2025-02-10] MEDS: fentaNYL CITRATE INJ (*CRX) 100 MCG/2 ML VIAL 25 MCG IV PUSH ×4 (15:35→16:00)
[2025-02-10] MEDS: SENNA/DOCUSATE SODIUM TABLET 2 TAB PO (17:12)
--- NOTE | 2025-02-10 17:36 | PM.IMPN ---
Progress Note: A&P Assessment and Plan (1) Sepsis: Qualifiers: Sepsis type: sepsis due to unspecified organism Sepsis acute organ dysfunction status: without acute organ dysfunction Qualified Code(s): A41.9 - Sepsis, unspecified organism Code(s): A41.9 - Sepsis, unspecified organism Status: Acute Assessment and Plan: - meets SIRS criteria: HR greater than 90, WBC greater than 12 - lactic acid: 0.9 - 30 mL/kg = 2.5 L, given in the ED - suspected source: Cellulitic knee - started on vancomycin and cefepime, did not tolerate vancomycin which was exchanged to linezolid - blood cultures drawn on 02/08, follow-up - monitor hemodynamic stability (2) Cellulitis of knee, right: Code(s): L03.115 - Cellulitis of right lower limb Status: Acute Assessment and Plan: - CXR, 02/08: 1. Moderate soft tissue stranding and soft tissue gas surrounding the anterior aspect of the right knee. These findings may be posttraumatic or infectious. Clinically correlate. 2: Small joint effusion. - patient started on cefepime and vancomycin in the ED on 02/08. Patient however had adverse reaction to vancomycin including itching and hypotension. Vancomycin exchanged to linezolid IVPB. - orthopedics consulted and MRI ordered - analgesics p.r.n. - blood cultures obtained on 02/08, follow Plan Complains of headache which is feels like her regular migraine. Chipped offered to after the fall. All body is sore but no particular neck pain or headache. Remains afebrile. Right knee hurts, patient is seen by an orthopedic and scheduled to I&D today, patient's mother is present, gave updates. Headache likely migraine will try Excedrin p.r.n. if not resolving will get CT head/neck Fall injury on 02/06/2025 Diet: Regular GI Prophylaxis: N/a DVT Prophylaxis: SCDs IV fluids: 2.5 L bolus will start gentle IV fluid Lines/Tubes: Peripheral IV Code Status: Full code Subjective Date/time seen: 02/10/25 17:36 Interval history: Complains of headache which is feels like her regular migraine. Chipped offered to after the fall. All body is sore but no particular neck pain or headache. Remains afebrile. Right knee hurts, patient is seen by an orthopedic and scheduled to I&D today, patient's mother is present, gave updates. Review of Systems Review of Systems: All systems reviewed & are unremarkable except as noted in HPI and below Exam Narrative: Patient is comfortable, NAD HEENT: eyes are clear and none icteric LUNGS:CTA HEART: RR S1S2 ABD: BS+, Soft and nontender Lower extremities: no edema MS: Right knee erythematous and edematous SKIN: nonjaundiced Neuro: grossly intact. Objective Data Vital Signs Vital Signs: Vital Signs - 24 hr 02/09/25 20:00 02/09/25 20:16 02/09/25 22:17 Temperature 36.9 C Pulse Rate 92 97 Respiratory Rate 20 16 Blood Pressure 95/57 L Pulse Oximetry 97 98 Oxygen Delivery Room Air Room Air Oxygen Flow Rate Fraction of Inspired Oxygen 21 02/10/25 06:45 02/10/25 10:00 02/10/25 14:11 Temperature 37.2 C 38.1 C H Pulse Rate 73 77 Respiratory Rate 16 16 Blood Pressure 98/57 L 110/68 Pulse Oximetry 99 100 Oxygen Delivery Room Air Room Air Oxygen Flow Rate Fraction of Inspired Oxygen 02/10/25 15:19 02/10/25 15:30 02/10/25 15:45 Temperature 37.2 C Pulse Rate 112 H 105 H 93 Respiratory Rate 15 14 16 Blood Pressure 96/64 L 102/68 112/62 Pulse Oximetry 100 100 100 Oxygen Delivery Simple Face Mask Simple Face Mask Room Air Oxygen Flow Rate 6 8 Fraction of Inspired Oxygen 02/10/25 16:00 02/10/25 16:15 02/10/25 16:30 Temperature 37.8 C H Pulse Rate 90 90 90 Respiratory Rate 14 14 17 Blood Pressure 111/69 110/68 112/64 Pulse Oximetry 98 98 96 Oxygen Delivery Room Air Room Air Room Air Oxygen Flow Rate Fraction of Inspired Oxygen 02/10/25 17:03 Temperature 36.8 C Pulse Rate 88 Respiratory Rate 18 Blood Pressure 118/68 Pulse Oximetry 100 Oxygen Delivery Oxygen Flow Rate Fraction of Inspired Oxygen Intake/Output Intake/Output: Intake & Output 02/07/25 02/08/25 02/09/25 02/10/25 23:59 23:59 23:59 23:59 Intake Total 2550 2130 1650 Output Total 750 Balance 2550 1380 1650 Meds/Results Medications: Active Medications Generic Name Dose Route Start Last Admin Trade Name Freq PRN Reason Stop Dose Admin Acetaminophen 650 mg 02/08/25 18:43 02/10/25 05:02 Acetaminophen 325 Mg Tablet PO 650 mg Q4H PRN Administration Mild Pain (1-3) or Fever Acetaminophen/Aspirin/Caffeine 1 tablet 02/09/25 13:10 02/09/25 22:15 Acetaminophen/Aspirin/Caffeine 250-250-65 Mg Tablet PO 1 tablet Q6H PRN Administration Migraine Headache Hydrocodone Bitart/Acetaminophen 1 tab 02/08/25 22:25 02/09/25 20:42 Hydrocodone/Acetaminophen (*Crx) 5-325 Mg Tablet PO 1 tab Q4H PRN Administration Pain Rated 4-6 Albuterol 2 puff 02/08/25 21:35 Albuterol Sulfate (*Sp) Aerosol 1 Puff INHALATION Q4-6H PRN Shortness Of Breath Docusate Sodium 100 mg 02/08/25 22:26 Docusate Sodium 100 Mg Capsule PO Q12H PRN Constipation Linezolid 600 mg in 300 mls @ 300 mls/hr 02/09/25 09:00 02/10/25 09:51 Zyvox IVPB 300 mls/hr Q12HR ADELAIDA Administration Cefepime HCl 2 gm/ Sodium 50 mls @ 100 mls/hr 02/09/25 05:00 02/10/25 17:13 Chloride IVPB 100 mls/hr Q12H ADELAIDA Administration Sodium Chloride 1,000 mls @ 75 mls/hr 02/09/25 13:15 02/10/25 09:51 Normal Saline Iv IV CONT 75 mls/hr .[id number] ADELAIDA Administration Ibuprofen 800 mg in 200 mls @ 400 mls/hr 02/10/25 16:41 Caldolor 800 Mg/200 Ml IVPB Q6H PRN Pain Rated 4-6 IF NPO Morphine Sulfate 4 mg 02/08/25 18:43 02/10/25 17:12 Morphine Sulfate (*Crx) 4 Mg/Ml Inj IV PUSH 4 mg Q2H PRN Administration Pain Rated 7-10 Ondansetron HCl 4 mg 02/08/25 18:43 02/09/25 20:41 Ondansetron Inj 4 Mg/2 Ml Vial IV PUSH 4 mg Q4H PRN Administration Nausea Polyethylene Glycol 17 gm 02/11/25 09:00 Polyethylene Glycol 3350 17 Gm Powd.Pack PO QAM ADELAIDA Senna/Docusate Sodium 2 tab 02/10/25 17:00 02/10/25 17:12 Senna/Docusate Sodium Tablet PO 2 tab BID ADELAIDA Administration Radiology Results: ITS Impressions Knee CT 02/08/25 18:15 IMPRESSION: 1. Moderate soft tissue stranding and soft tissue gas surrounding the anterior aspect of the right knee. These findings may be posttraumatic or infectious. Clinically correlate. 2: Small joint effusion. Knee MRI 02/09/25 13:46 IMPRESSION: 1. Edema within the patella without discrete fracture line most likely related to post traumatic bone contusion. 2. There is a likely sutured skin laceration overlying the inferior patella with a few foci of gas, foreign debris metallic susceptibility artifact related to penetrating injury prominent surrounding soft tissue edema which could represent posttraumatic contusion or cellulitis. No organized fluid collection to suggest abscess or septic bursitis. 3. Complete tear of the posterior cruciate ligament. Remaining stabilizing ligaments, cartilage and menisci remain intact. 4. Nonspecific small likely reactive knee joint effusion without significant thickening of the enhancing synovium or inflammatory changes in the immediately surrounding fat to elevated concern for infection. Labs Labs: Laboratory Results - last 24 hr 02/10/25 06:05 WBC 9.1 RBC 3.34 L Hgb 10.4 L Hct 32.5 L MCV 97.3 MCH 31.1 MCHC 32.0 RDW 13.4 Plt Count 180 MPV 9.6 Immature Gran % (Auto) 0.5 Neut % (Auto) 75.7 H Lymph % (Auto) 14.0 L [place] % (Auto) 8.8 H Eos % (Auto) 0.8 Baso % (Auto) 0.2 Lymph # (Auto) 1.28 [place] # (Auto) 0.8 H Eos # (Auto) 0.1 Baso # (Auto) 0.0 Abs Immat Gran (auto) 0.05 H Absolute Neuts (auto) 6.9 H Absolute Nucleated RBC 0.000 Nucleated RBC % 0.0 Sodium 137 Potassium 3.3 L Chloride 106 Carbon Dioxide 27 Anion Gap 4 BUN 4 L Creatinine 0.63 L Estim Creat Clear Calc 125 Estimated GFR > 60 Glucose 98 Calcium 8.3 L Magnesium 1.9 Total Bilirubin 1.6 H AST 43 H ALT 37 H Alkaline Phosphatase 80 Total Protein 5.7 L Albumin 3.1 L Quality VTE Prophylaxis VTE prophylaxis: mechanical ordered
[2025-02-10] MEDS: IBUPROFEN IV 800 MG/200 ML 800 MG/200 ML BAG 400 MG IVPB (19:36)
[2025-02-11] VITALS (7 sets, daily range): BP systolic 95–110; BP diastolic 58–67; PULSE 67–80; RESP 16–20; TEMP 36.2–37.2; O2SAT 97–100
[2025-02-11] MEDS: IBUPROFEN IV 800 MG/200 ML 800 MG/200 ML BAG 400 MG IVPB ×3 (03:47→17:59)
[2025-02-11] MEDS: MORPHINE SULFATE (*CRX) 4 MG/ML INJ IV PUSH ×3 (03:48→21:26)
[2025-02-11] MEDS: CEFEPIME 2 GM in SODIUM CHLORIDE 0.9% IV 50 ML 100 ML IVPB (05:43)
[2025-02-11 06:16] LABS: Hematocrit 30.6 % (37.0-47.0); Hemoglobin 9.8 g/dL (12.0-15.0); Immature Granulocyte Percent A 0.3 % (0-0.5); Lymphocytes Absolute Auto 1.16 K/mm3 (0.9-3.2); Mean Corpuscular HGB Conc 32.0 g/dl (32-36); Mean Corpuscular Hemoglobin 31.2 pg (26-34); Mean Corpuscular Volume 97.5 fl (80-100); Nucleated Red Blood Cells Absolute Auto 0.000 K/mm3 (0.0-0.012); Nucleated Red Blood Cells Perc 0.0 % (0.0-0.2); Platelet Count Result 180 k/mm3 (150-375); Red Blood Count 3.14 M/mm3 (4.2-5.4); White Blood Count 5.9 K/mm3 (4.5-10.0)
[2025-02-11 06:41] LABS: Anion Gap 4 mmol/L (4-12); Blood Urea Nitrogen 3 mg/dL (7-17); Calcium 8.2 mg/dL (8.4-10.2); Carbon Dioxide 28 mmol/L (22-30); Chloride 106 mmol/L (98-107); Estimated CRCL calculation 129 ml/min; Estimated Glomerular Filt Rate > 60; Glucose 89 mg/dL (65-110); Potassium 3.1 mmol/L (3.4-5.0); Sodium 138 mmol/L (137-145)
[2025-02-11] MEDS: SODIUM CHLORIDE 0.9% IV 1,000 ML 75 ML IV CONT (07:46)
[2025-02-11] MEDS: LINEZOLID 600 MG/300 ML 600 MG/300 ML SOLN 300 MG IVPB (08:10)
[2025-02-11] MEDS: SENNA/DOCUSATE SODIUM TABLET 2 TAB PO (08:10)
--- NOTE | 2025-02-11 09:32 | PM.PNORT ---
Progress Note: A&P Assessment and Plan (1) Septic prepatellar bursitis of right knee: Code(s): M71.161 - Other infective bursitis, right knee Status: Acute Assessment and Plan: POD #1 : Excision of prepatellar bursa right knee with debridement WBAT. Continue pain control. Ice knee. Protect skin. SCDs. Incentive Spirometry Use reviewed. Monitor Dressing. Dressing changed today. Incision well approximated. Change daily and PRN for drainage. Bowel Regimen. Antibiotics to be determined by hospitalist service. Awaiting culture results. Gram stain still pending? Dispo: Home pending antibiotic decisions by hospitalist service. Follow up in 2 weeks in the outpatient orthopedic clinic for suture removal. Plan Reviewed history, exam, radiographs and current labs with attending MD and covering surgeon, Dr. Parada, who agrees with current plan as indicated above. No further recommendations from Dr. Parada at this time. Subjective Subjective Date/Time Seen: 02/11/25 09:32 Post Op day: 1 Interval history: POD #1: Excision of prepatellar bursa right knee with debridement Patient doing well. Pain well controlled on current pain medication regimen. No new concerns. Review of Systems Review of Systems: All systems reviewed & are unremarkable except as noted in HPI and below Exam Const: General: comfortable and no acute distress Resp: Effort & Inspection: normal respiratory effort Cardio: Rate: regular rate Rhythm: regular rhythm GI: GI Palp: Yes Soft to palpation and No Tenderness to palpation present (GI) Skin: Other: see extremity assessment Extrem: Right lower extremity: knee (dressing removed, incision well approximated. No drainage. ) Details: tenderness (entire leg ) Location: of the patella, swelling (mild to moderate, improved ), abnormal ROM (improving ) Details: pain with active ROM during Details: in extension and in flexion, warmth (improving ) and other (significant improvement in erythema. ) Objective Data Vital Signs Vital Signs: Vital Signs - 24 hr 02/10/25 10:00 02/10/25 14:11 02/10/25 15:19 Temperature 38.1 C H 37.2 C Pulse Rate 77 112 H Respiratory Rate 16 15 Blood Pressure 110/68 96/64 L Pulse Oximetry 100 100 Oxygen Delivery Room Air Room Air Simple Face Mask Oxygen Flow Rate 6 02/10/25 15:30 02/10/25 15:45 02/10/25 16:00 Temperature Pulse Rate 105 H 93 90 Respiratory Rate 14 16 14 Blood Pressure 102/68 112/62 111/69 Pulse Oximetry 100 100 98 Oxygen Delivery Simple Face Mask Room Air Room Air Oxygen Flow Rate 8 02/10/25 16:15 02/10/25 16:30 02/10/25 17:03 Temperature 37.8 C H 36.8 C Pulse Rate 90 90 88 Respiratory Rate 14 17 18 Blood Pressure 110/68 112/64 118/68 Pulse Oximetry 98 96 100 Oxygen Delivery Room Air Room Air Oxygen Flow Rate 02/10/25 19:55 02/10/25 20:00 02/10/25 23:51 Temperature 38.3 C H Pulse Rate 97 Respiratory Rate 16 Blood Pressure 109/60 Pulse Oximetry 96 98 Oxygen Delivery Room Air Room Air Oxygen Flow Rate 02/11/25 00:35 02/11/25 04:01 Temperature 36.8 C 37.1 C Pulse Rate 78 67 Respiratory Rate 16 16 Blood Pressure 95/60 L 104/67 Pulse Oximetry 98 97 Oxygen Delivery Oxygen Flow Rate Intake/Output Intake/Output: Intake & Output 02/08/25 02/09/25 02/10/25 02/11/25 23:59 23:59 23:59 23:59 Intake Total 2550 2130 3700 500 Output Total 750 Balance 2550 1380 3700 500 Meds/Results Medications: Active Medications Generic Name Dose Route Start Last Admin Trade Name Freq PRN Reason Stop Dose Admin Acetaminophen 650 mg 02/08/25 18:43 02/10/25 05:02 Acetaminophen 325 Mg Tablet PO 650 mg Q4H PRN Administration Mild Pain (1-3) or Fever Acetaminophen/Aspirin/Caffeine 1 tablet 02/09/25 13:10 02/09/25 22:15 Acetaminophen/Aspirin/Caffeine 250-250-65 Mg Tablet PO 1 tablet Q6H PRN Administration Migraine Headache Hydrocodone Bitart/Acetaminophen 1 tab 02/08/25 22:25 02/09/25 20:42 Hydrocodone/Acetaminophen (*Crx) 5-325 Mg Tablet PO 1 tab Q4H PRN Administration Pain Rated 4-6 Albuterol 2 puff 02/08/25 21:35 Albuterol Sulfate (*Sp) Aerosol 1 Puff INHALATION Q4-6H PRN Shortness Of Breath Docusate Sodium 100 mg 02/08/25 22:26 Docusate Sodium 100 Mg Capsule PO Q12H PRN Constipation Linezolid 600 mg in 300 mls @ 300 mls/hr 02/09/25 09:00 02/11/25 08:10 Zyvox IVPB 300 mls/hr Q12HR ADELAIDA Administration Cefepime HCl 2 gm/ Sodium 50 mls @ 100 mls/hr 02/09/25 05:00 02/11/25 05:43 Chloride IVPB 100 mls/hr Q12H ADELAIDA Administration Sodium Chloride 1,000 mls @ 75 mls/hr 02/09/25 13:15 02/11/25 07:46 Normal Saline Iv IV CONT 75 mls/hr .[id number] ADELAIDA Administration Ibuprofen 800 mg in 200 mls @ 400 mls/hr 02/10/25 16:41 02/11/25 03:47 Caldolor 800 Mg/200 Ml IVPB 400 mls/hr Q6H PRN Administration Pain Rated 4-6 IF NPO Morphine Sulfate 4 mg 02/08/25 18:43 02/11/25 08:05 Morphine Sulfate (*Crx) 4 Mg/Ml Inj IV PUSH 4 mg Q2H PRN Administration Pain Rated 7-10 Ondansetron HCl 4 mg 02/08/25 18:43 02/09/25 20:41 Ondansetron Inj 4 Mg/2 Ml Vial IV PUSH 4 mg Q4H PRN Administration Nausea Polyethylene Glycol 17 gm 02/11/25 09:00 02/11/25 08:10 Polyethylene Glycol 3350 17 Gm Powd.Pack PO 17 gm QAM ADELAIDA Administration Senna/Docusate Sodium 2 tab 02/10/25 17:00 02/11/25 08:10 Senna/Docusate Sodium Tablet PO 2 tab BID ADELAIDA Administration Radiology Results: ITS Impressions Knee CT 02/08/25 18:15 IMPRESSION: 1. Moderate soft tissue stranding and soft tissue gas surrounding the anterior aspect of the right knee. These findings may be posttraumatic or infectious. Clinically correlate. 2: Small joint effusion. Knee MRI 02/09/25 13:46 IMPRESSION: 1. Edema within the patella without discrete fracture line most likely related to post traumatic bone contusion. 2. There is a likely sutured skin laceration overlying the inferior patella with a few foci of gas, foreign debris metallic susceptibility artifact related to penetrating injury prominent surrounding soft tissue edema which could represent posttraumatic contusion or cellulitis. No organized fluid collection to suggest abscess or septic bursitis. 3. Complete tear of the posterior cruciate ligament. Remaining stabilizing ligaments, cartilage and menisci remain intact. 4. Nonspecific small likely reactive knee joint effusion without significant thickening of the enhancing synovium or inflammatory changes in the immediately surrounding fat to elevated concern for infection. Labs Labs: Laboratory Results - last 24 hr 02/11/25 05:43 WBC 5.9 RBC 3.14 L Hgb 9.8 L Hct 30.6 L MCV 97.5 MCH 31.2 MCHC 32.0 RDW 13.6 Plt Count 180 MPV 9.8 Immature Gran % (Auto) 0.3 Neut % (Auto) 66.4 Lymph % (Auto) 19.7 [place] % (Auto) 11.4 H Eos % (Auto) 1.7 Baso % (Auto) 0.5 Lymph # (Auto) 1.16 [place] # (Auto) 0.7 H Eos # (Auto) 0.1 Baso # (Auto) 0.0 Abs Immat Gran (auto) 0.02 Absolute Neuts (auto) 3.9 Absolute Nucleated RBC 0.000 Nucleated RBC % 0.0 Sodium 138 Potassium 3.1 L Chloride 106 Carbon Dioxide 28 Anion Gap 4 BUN 3 L Creatinine 0.61 L Estim Creat Clear Calc 129 Estimated GFR > 60 Glucose 89 Calcium 8.2 L
[2025-02-11] MEDS: POTASSIUM CHLORIDE 20 MEQ ER TABLET 40 MEQ PO (09:47)
[2025-02-11] MEDS: HYDROcodone/acetaminophen (*CRX) 5-325 MG TABLET 1 TAB PO ×2 (15:53→21:27)
[2025-02-11] MEDS: ONDANSETRON INJ 4 MG/2 ML VIAL IV PUSH ×2 (15:53→21:40)
--- NOTE | 2025-02-11 16:07 | PM.IMPN ---
Progress Note: A&P Assessment and Plan (1) Sepsis: Qualifiers: Sepsis type: sepsis due to unspecified organism Sepsis acute organ dysfunction status: without acute organ dysfunction Qualified Code(s): A41.9 - Sepsis, unspecified organism Code(s): A41.9 - Sepsis, unspecified organism Status: Acute Assessment and Plan: - meets SIRS criteria: HR greater than 90, WBC greater than 12 - lactic acid: 0.9 - 30 mL/kg = 2.5 L, given in the ED - suspected source: Cellulitic knee - started on vancomycin and cefepime, did not tolerate vancomycin which was exchanged to linezolid - blood cultures drawn on 02/08, follow-up - monitor hemodynamic stability (2) Cellulitis of knee, right: Code(s): L03.115 - Cellulitis of right lower limb Status: Acute Assessment and Plan: - CXR, 02/08: 1. Moderate soft tissue stranding and soft tissue gas surrounding the anterior aspect of the right knee. These findings may be posttraumatic or infectious. Clinically correlate. 2: Small joint effusion. - patient started on cefepime and vancomycin in the ED on 02/08. Patient however had adverse reaction to vancomycin including itching and hypotension. Vancomycin exchanged to linezolid IVPB. - orthopedics consulted and MRI ordered - analgesics p.r.n. - blood cultures obtained on 02/08, follow Plan Complains of headache which is feels like her regular migraine. Chipped offered to after the fall. All body is sore but no particular neck pain or headache. Remains afebrile. Right knee hurts, patient is seen by an orthopedic and POD#1 had excision of prepatellar bursa right knee with debridement, patient stats pain improved compared to arrival, discuss with clinical pharmacist and recommended to continue ceftriaxone, and linezolid, and patient is being treated, will follow up on would culture and further recommendation to follow. Headache likely migraine will try Excedrin p.r.n. if not resolving will get CT head/neck Fall injury on 02/06/2025 Diet: Regular GI Prophylaxis: N/a DVT Prophylaxis: SCDs IV fluids: 2.5 L bolus will start gentle IV fluid Lines/Tubes: Peripheral IV Code Status: Full code Subjective Date/time seen: 02/11/25 16:07 Interval history: Complains of headache which is feels like her regular migraine. Chipped offered to after the fall. All body is sore but no particular neck pain or headache. Remains afebrile. Right knee hurts, patient is seen by an orthopedic and POD#1 had excision of prepatellar bursa right knee with debridement, patient stats pain improved compared to arrival, discuss with clinical pharmacist and recommended to continue ceftriaxone, and linezolid, and patient is being treated, will follow up on would culture and further recommendation to follow. Review of Systems Review of Systems: All systems reviewed & are unremarkable except as noted in HPI and below Exam Narrative: Patient is comfortable, NAD HEENT: eyes are clear and none icteric LUNGS:CTA HEART: RR S1S2 ABD: BS+, Soft and nontender Lower extremities: no edema MS: Right knee erythematous and edematous SKIN: nonjaundiced Neuro: grossly intact. Objective Data Vital Signs Vital Signs: Vital Signs - 24 hr 02/10/25 16:15 02/10/25 16:30 02/10/25 17:03 Temperature 37.8 C H 36.8 C Pulse Rate 90 90 88 Respiratory Rate 14 17 18 Blood Pressure 110/68 112/64 118/68 Pulse Oximetry 98 96 100 Oxygen Delivery Room Air Room Air 02/10/25 19:55 02/10/25 20:00 02/10/25 23:51 Temperature 38.3 C H Pulse Rate 97 Respiratory Rate 16 Blood Pressure 109/60 Pulse Oximetry 96 98 Oxygen Delivery Room Air Room Air 02/11/25 00:35 02/11/25 04:01 02/11/25 08:10 Temperature 36.8 C 37.1 C Pulse Rate 78 67 Respiratory Rate 16 16 Blood Pressure 95/60 L 104/67 Pulse Oximetry 98 97 Oxygen Delivery Room Air 02/11/25 10:26 Temperature 37.0 C Pulse Rate 74 Respiratory Rate 18 Blood Pressure 107/58 L Pulse Oximetry 100 Oxygen Delivery Intake/Output Intake/Output: Intake & Output 02/08/25 02/09/25 02/10/25 02/11/25 23:59 23:59 23:59 23:59 Intake Total 2550 2130 3700 1380 Output Total 750 Balance 2550 1380 3700 1380 Meds/Results Medications: Active Medications Generic Name Dose Route Start Last Admin Trade Name Freq PRN Reason Stop Dose Admin Acetaminophen 650 mg 02/08/25 18:43 02/10/25 05:02 Acetaminophen 325 Mg Tablet PO 650 mg Q4H PRN Administration Mild Pain (1-3) or Fever Acetaminophen/Aspirin/Caffeine 1 tablet 02/09/25 13:10 02/09/25 22:15 Acetaminophen/Aspirin/Caffeine 250-250-65 Mg Tablet PO 1 tablet Q6H PRN Administration Migraine Headache Hydrocodone Bitart/Acetaminophen 1 tab 02/08/25 22:25 02/11/25 15:53 Hydrocodone/Acetaminophen (*Crx) 5-325 Mg Tablet PO 1 tab Q4H PRN Administration Pain Rated 4-6 Albuterol 2 puff 02/08/25 21:35 Albuterol Sulfate (*Sp) Aerosol 1 Puff INHALATION Q4-6H PRN Shortness Of Breath Docusate Sodium 100 mg 02/08/25 22:26 Docusate Sodium 100 Mg Capsule PO Q12H PRN Constipation Sodium Chloride 1,000 mls @ 75 mls/hr 02/09/25 13:15 02/11/25 07:46 Normal Saline Iv IV CONT 75 mls/hr .[id number] ADELAIDA Administration Ibuprofen 800 mg in 200 mls @ 400 mls/hr 02/10/25 16:41 02/11/25 10:14 Caldolor 800 Mg/200 Ml IVPB Infused Q6H PRN Infusion Pain Rated 4-6 IF NPO Ceftriaxone Sodium 2 gm/ 100 mls @ 200 mls/hr 02/11/25 14:00 Sodium Chloride IVPB Q24H ADELAIDA Linezolid 600 mg 02/11/25 21:00 Linezolid 600 Mg Tablet PO Q12HR ADELAIDA Morphine Sulfate 4 mg 02/08/25 18:43 02/11/25 08:05 Morphine Sulfate (*Crx) 4 Mg/Ml Inj IV PUSH 4 mg Q2H PRN Administration Pain Rated 7-10 Ondansetron HCl 4 mg 02/08/25 18:43 02/11/25 15:53 Ondansetron Inj 4 Mg/2 Ml Vial IV PUSH 4 mg Q4H PRN Administration Nausea Polyethylene Glycol 17 gm 02/11/25 09:00 02/11/25 08:10 Polyethylene Glycol 3350 17 Gm Powd.Pack PO 17 gm QAM ADELAIDA Administration Senna/Docusate Sodium 2 tab 02/10/25 17:00 02/11/25 16:00 Senna/Docusate Sodium Tablet PO Not Given BID ADELAIDA Radiology Results: ITS Impressions Knee CT 02/08/25 18:15 IMPRESSION: 1. Moderate soft tissue stranding and soft tissue gas surrounding the anterior aspect of the right knee. These findings may be posttraumatic or infectious. Clinically correlate. 2: Small joint effusion. Knee MRI 02/09/25 13:46 IMPRESSION: 1. Edema within the patella without discrete fracture line most likely related to post traumatic bone contusion. 2. There is a likely sutured skin laceration overlying the inferior patella with a few foci of gas, foreign debris metallic susceptibility artifact related to penetrating injury prominent surrounding soft tissue edema which could represent posttraumatic contusion or cellulitis. No organized fluid collection to suggest abscess or septic bursitis. 3. Complete tear of the posterior cruciate ligament. Remaining stabilizing ligaments, cartilage and menisci remain intact. 4. Nonspecific small likely reactive knee joint effusion without significant thickening of the enhancing synovium or inflammatory changes in the immediately surrounding fat to elevated concern for infection. Labs Labs: Laboratory Results - last 24 hr 02/11/25 05:43 WBC 5.9 RBC 3.14 L Hgb 9.8 L Hct 30.6 L MCV 97.5 MCH 31.2 MCHC 32.0 RDW 13.6 Plt Count 180 MPV 9.8 Immature Gran % (Auto) 0.3 Neut % (Auto) 66.4 Lymph % (Auto) 19.7 [place] % (Auto) 11.4 H Eos % (Auto) 1.7 Baso % (Auto) 0.5 Lymph # (Auto) 1.16 [place] # (Auto) 0.7 H Eos # (Auto) 0.1 Baso # (Auto) 0.0 Abs Immat Gran (auto) 0.02 Absolute Neuts (auto) 3.9 Absolute Nucleated RBC 0.000 Nucleated RBC % 0.0 Sodium 138 Potassium 3.1 L Chloride 106 Carbon Dioxide 28 Anion Gap 4 BUN 3 L Creatinine 0.61 L Estim Creat Clear Calc 129 Estimated GFR > 60 Glucose 89 Calcium 8.2 L Quality VTE Prophylaxis VTE prophylaxis: mechanical ordered
[2025-02-11] MEDS: cefTRIAXone 2 GM in SODIUM CHLORIDE 0.9% IV 100 ML 200 ML IVPB (16:14)
[2025-02-11] MEDS: LINEZOLID 600 MG TABLET PO (21:26)
[2025-02-12] MEDS: ONDANSETRON INJ 4 MG/2 ML VIAL IV PUSH ×3 (03:12→10:50)
[2025-02-12] MEDS: ACETAMINOPHEN/ASPIRIN/CAFFEINE 250-250-65 MG TABLET 1 TABLET PO (03:12)
[2025-02-12] MEDS: HYDROcodone/acetaminophen (*CRX) 5-325 MG TABLET 1 TAB PO ×3 (03:12→10:49)
[2025-02-12 06:00] VITALS: BP 81/44; PULSE 96; RESP 20; TEMP 36.4; O2SAT 98
[2025-02-12] MEDS: LINEZOLID 600 MG TABLET PO (08:51)
--- NOTE | 2025-02-12 11:31 | P.DS_ITS ---
DS: Admitting Diagnosis Discharge Date 02/12/25 Admitting Diagnosis Knee Pain and Redness DS: Discharge Diagnosis Discharge Diagnosis (1) Sepsis: Qualifiers: Sepsis type: sepsis due to unspecified organism Sepsis acute organ dysfunction status: without acute organ dysfunction Qualified Code(s): A41.9 - Sepsis, unspecified organism Code(s): A41.9 - Sepsis, unspecified organism Status: Acute Assessment and Plan: - meets SIRS criteria: HR greater than 90, WBC greater than 12 - lactic acid: 0.9 - 30 mL/kg = 2.5 L, given in the ED - suspected source: Cellulitic knee - started on vancomycin and cefepime, did not tolerate vancomycin which was exchanged to linezolid - blood cultures drawn on 02/08, follow-up - monitor hemodynamic stability (2) Cellulitis of knee, right: Code(s): L03.115 - Cellulitis of right lower limb Status: Acute Assessment and Plan: - CXR, 02/08: 1. Moderate soft tissue stranding and soft tissue gas surrounding the anterior aspect of the right knee. These findings may be posttraumatic or infectious. Clinically correlate. 2: Small joint effusion. - patient started on cefepime and vancomycin in the ED on 02/08. Patient however had adverse reaction to vancomycin including itching and hypotension. Vancomycin exchanged to linezolid IVPB. - orthopedics consulted and MRI ordered - analgesics p.r.n. - blood cultures obtained on 02/08, follow Plan Complains of headache which is feels like her regular migraine. Chipped offered to after the fall. All body is sore but no particular neck pain or headache. Remains afebrile. Right knee hurts, patient is seen by an orthopedic and POD#1 had excision of prepatellar bursa right knee with debridement, patient stats pain improved compared to arrival, discuss with clinical pharmacist and recommended to continue ceftriaxone, and linezolid, and patient is being treated, will follow up on would culture and further recommendation to follow. Headache likely migraine will try Excedrin p.r.n. if not resolving will get CT head/neck Fall injury on 02/06/2025 Diet: Regular GI Prophylaxis: N/a DVT Prophylaxis: SCDs IV fluids: 2.5 L bolus will start gentle IV fluid Lines/Tubes: Peripheral IV Code Status: Full code DS: Summary Hospital Course Hospital Course: xyvox was switch Bactrim Complains of headache which is feels like her regular migraine. Chipped offered to after the fall. All body is sore but no particular neck pain or headache. Remains afebrile. Right knee hurts, patient is seen by an orthopedic and POD#2 had excision of prepatellar bursa right knee with debridement, patient stats pain improved compared to arrival, discuss with clinical pharmacist and recommended to continue ceftriaxone, and linezolid, and patient is being treated, will follow up on would culture and further recommendation to follow. patient stats feeling much better, pain and redness has improved, clinically stable, will discharge home today, patient was initially discharged on Xyvox however her insurance requires pre authrization, it Saturday aften, patient antibiotics was switch to Bactrim DS BID for 7 days. Time Spent with Patient Time attestation: Total time spent providing and/or coordinating discharge services: Exam Narrative: Patient is comfortable, NAD HEENT: eyes are clear and none icteric LUNGS:CTA HEART: RR S1S2 ABD: BS+, Soft and nontender Lower extremities: no edema MS: Right knee erythematous and edematous SKIN: nonjaundiced Neuro: grossly intact. DS: Data Data Completed and Pending Labs on day of discharge: Preliminary micro results at discharge 02/08/25 16:33 Blood Culture - Preliminary Blood 02/08/25 16:48 Blood Culture - Preliminary Blood Discharge Plan Discharge Attending physician on discharge: Carlos Lucas Consulting providers: Eleazar Parada Discharging Clinician: Andreina Singh Patient Disposition: Home Activity: may shower and no driving Diet: as tolerated Wound Care Instructions: follow printed instructions Discharge Instructions: Orthopedic Recommendations Dr. Eleazar Parada [phone] * Keep incision clean, dry and intact. * Weight bearing as tolerated. * Follow up in 2 weeks. * * Patient to follow discharge care instruction for her surgeon and follow up as scheduled, patient to follow up with her primary care provider as soon as possible, patient is instructed if any symptoms redevelop to go to [facility] ER. Patient Instructions: Antibiotic Form Patient Language: Kazakh Stand Alone Forms: General Discharge Information, Work/School Release IP Follow-up/Referrals: Eleazar Parada MD [Physician, Orthopedics] - 02/23/25 1:45 pm Az Taylor MD [Primary Care Provider, Internal Medicine] Discharge Medications: New hydrocodone-acetaminophen 5-325 mg Tablet 1 tablet PO Q4H PRN (Reason: pain) Qty: 30 0RF sennosides-docusate sodium [Senokot-S] 8.6-50 mg Tablet 2 tab-cap PO BID Qty: 20 0RF linezolid 600 mg Tablet 600 mg PO Q12HR Qty: 14 0RF cefdinir 300 mg capsule 300 mg PO Q12H Qty: 14 0RF ondansetron 4 mg tablet,disintegrating 4 mg PO Q6H PRN (Reason: nausea and vomiting) Qty: 20 0RF sulfamethoxazole-trimethoprim [Bactrim DS] 800-160 mg tablet 1 tablet PO Q12H Qty: 14 0RF Continued albuterol sulfate 90 mcg/actuation HFA aerosol inhaler See Rx Instructions .ROUTE .COMPLEX Qty: 8.5 0RF Dose Instruction: INHALE 2 PUFFS BY MOUTH EVERY 4 TO 6 HOURS NEEDED FOR ASTHMA Rx Instructions: INHALE 2 PUFFS BY MOUTH EVERY 4 TO 6 HOURS NEEDED FOR ASTHMA Date of admission: 02/10/25 10:31 Primary Care Provider: Az Taylor Admitting Provider: Carlos Lucas Attending physician on admission: Carlos Lucas Condition: Stable
[2025-02-12] MEDS: POTASSIUM CHLORIDE 20 MEQ ER TABLET 40 MEQ PO (12:02)
== END 2025-02-12 13:25 | disposition home or self-care (01) | DRG 854 ==
LOC: ANHED 18:43 → ANH3MEDSUR 19:19
PROVIDERS: Internal Medicine; Orthopaedic Surgery; Student in an Organized Health Care Education/Training Program; Admitting Provider Internal Medicine; Emergency Provider Student in an Organized Health Care Education/Training Program; PCP Emergency Medicine; Visit Provider Family Medicine
PROC: 0MBN0ZZ Excision of Right Knee Bursa and Ligament, Open Approach (ICD-10-PCS; principal; 2025-02-10 14:00)
DX: A41.9 Sepsis, unspecified organism (principal); L03.115 Cellulitis of right lower limb; S81.022A Laceration with foreign body, left knee, initial encounter; M71.161 Other infective bursitis, right knee; J45.909 Unspecified asthma, uncomplicated; I95.9 Hypotension, unspecified; L29.9 Pruritus, unspecified; T36.8X5A Adverse effect of other systemic antibiotics, initial encounter; W17.89XD Other fall from one level to another, subsequent encounter
CPT/HCPCS: 36415; 73701; 73723; 80048; 80053; 81001; 81025; 83605; 83735; 85025; 85380; 85610; 85652; 85730; 86140; 87040; 87070; 87075; 87186; 87205; 96365; 96375; 96376; 99285; A9270; A9577; G0378; J0692; J0696; J1171; J1200; J1741; J1885; J2003; J2020; J2250; J2270; J2405; J2704; J3010; J3373; J7030; J7040; J7120; Q9967